=== PATIENT | female | born 1995 | race Caucasian/White ===

== ENCOUNTER 2016-12-04 11:37 | Emergency (ER) | payer SELFPAY ==
[2016-12-04] MEDS ORDERED: NS 0.9% 1000 ML* 1,000 ML IV ONE (12:34)
--- NOTE | 2016-12-04 13:22 | RAD ---
Indication: 1 day RIGHT upper quadrant and midline abdominal pain intermittent. Comparison: July 30, 2015 CT chest. Technique: RIGHT upper quadrant ultrasound. Report: Appropriate direction flow documented in the portal and hepatic veins. 15.6 cm liver is normal in echogenicity. Negative for focal hepatic lesions. Negative for intrahepatic biliary dilatation. 3.3 mm common bile duct. Adequately distended gallbladder with normal 1.6 mm wall is without pathologic finding. Negative for sonographic Weir's sign. The pancreatic tail is partially obscured due to bowel gas with the visualized pancreas unremarkable. Negative for ascites. 12.0 cm RIGHT kidney is unremarkable. Normal diameter abdominal aorta visualized through the bifurcation. IMPRESSION: Negative RIGHT upper quadrant ultrasound.
[2016-12-04] MEDS ORDERED: Morphine INJ* 4 MG/ML 1 ML SYRINGE IV ONE (13:36)
[2016-12-04] MEDS ORDERED: Ondansetron INJ* 2 MG/ML VIAL IV ONE (13:36)
[2016-12-04 13:40] LABS: Hematocrit 46 % (35-47); Hemoglobin 15.3 g/dl (12.0-16.0); Mean Corpuscular HGB Conc 34 g/dl (31-36); Mean Corpuscular Hemoglobin 30 pg (27-31); Mean Corpuscular Volume 91 fL (80-97); Mean Platelet Volume 8 um3 (7.4-10.4); Red Blood Count 5.02 10^6/ul (4.0-5.4); Red Cell Distribution Width 13 % (10.5-15); White Blood Count 9.7 10^3/ul (3.5-10.8)
[2016-12-04 13:49] LABS: Urine Bilirubin Negative (Negative); Urine Glucose Negative (Negative); Urine Nitrite Negative (Negative)
[2016-12-04 13:55] LABS: Albumin 4.3 g/dL (3.2-5.2); BUN/Creatinine Ratio 13.8 (8-20); C Reactive Protein 26.85 mg/L (< 5.00); Calcium 9.8 mg/dL (8.6-10.3); EGFR African American 145.3 (>60); Globulin 3.3 g/dL (2-4); Magnesium 1.8 mg/dL (1.9-2.7); Potassium 3.6 mmol/L (3.5-5.0); Total Bilirubin 0.6 mg/dL (0.2-1.0); Total Protein 7.6 g/dL (6.4-8.9)
[2016-12-04] MEDS ORDERED: Iohexol 300* (CONTRAST) 10 ML SDV IV ONE (14:15)
--- NOTE | 2016-12-04 14:42 | RAD ---
CLINICAL HISTORY: Abdominal pain COMPARISON: None TECHNIQUE: Multiple contiguous axial CT scans were obtained of the abdomen and pelvis after the administration of intravenous contrast. Coronal and sagittal multiplanar reformations are submitted for review. Oral contrast was not administered. Delayed images were obtained through the abdomen and pelvis. FINDINGS: LUNG BASES: The lung bases are clear. LIVER: The liver is diffusely low in attenuation compared to the spleen. There are no focal hepatic parenchymal masses. BILE DUCTS: There is no intrahepatic or extrahepatic biliary dilatation. GALLBLADDER: The gallbladder is normal, without pericholecystic inflammatory change. PANCREAS: The pancreas is normal, without mass or ductal dilatation. SPLEEN: Normal in size and appearance. UPPER GI TRACT: Evaluation of the gastrointestinal tract is limited by incomplete gastric distention. The upper GI tract is unremarkable. SMALL BOWEL AND MESENTERY: The small bowel is normal in contour, course, and caliber. There is no obstruction or dilatation. COLON: The colon is normal in contour, course, caliber. There is no pericolonic inflammatory change. ADRENALS: Normal bilaterally. KIDNEYS: The kidneys are normal in shape, size, contour, and axis. There is no hydronephrosis or nephrolithiasis. BLADDER: The bladder is smooth in contour. PELVIC ORGANS: The uterus and adnexa are grossly normal for technique. An IUD is noted. AORTA: The aorta is normal. IVC: Unremarkable LYMPH NODES: There is no lymphadenopathy by size criteria. ABDOMINAL WALL: There is no evidence for abdominal wall hernia. BONES AND SOFT TISSUES: There is minimal degenerative change most pronounced at L1-L2. There is no appreciable osseous central canal stenosis OTHER: None IMPRESSION: FATTY ATTRITION OF THE LIVER. NO ACUTE CT PATHOLOGY OF THE VISUALIZED ABDOMEN OR PELVIS.
[2016-12-04 16:06] VITALS: BP 130/68
--- NOTE | 2016-12-04 18:55 | ED ---
[employer] Auryana, scribed for Phu Talley MD on 12/04/16 at 1232 . Abdominal Pain/Female - HPI Summary HPI Summary: 21 year old female presents to the ED for sudden onset abdominal pain since 7: 30pm yesterday. The pain is a 7/10, intermittently worse. Patient also has back pain s/p pulling her back 4 days ago. She reports nausea but denies any diarrhea. Her pain has been unchanged by Pepto-Bismol and heating pack. Patient states no recent LNMP due to control use and denies any possibility of . - History of Current Complaint Chief Complaint: EDAbdPain Stated Complaint: BACK PAIN/ABD PAIN / SHAKING Time Seen by Provider: 12/04/16 12:25 Hx Obtained From: Patient Hx Last Menstrual Period: 1 1/2 WEEKS AGO ?: No Onset/Duration: Sudden Onset, Lasting Hours Timing: Constant - varying in severity Severity Initially: Moderate Severity Currently: Moderate Pain Intensity: 7 Pain Scale Used: 0-10 Numeric Radiates to: Back Alleviating Factor(s): Nothing Associated Signs and Symptoms: Positive: Back Pain - s/p pulling back 4 days ago , Nausea. Negative: Diarrhea Allergies/Adverse Reactions: Allergies Allergy/AdvReac Type Severity Reaction Status Date / Time Phentermine Allergy Hives Verified 03/31/16 20:52 PMH/Surg Hx/FS Hx/Imm Hx Endocrine/Hematology History: Reports: Hx Anticoagulant Therapy Denies: Hx Diabetes Cardiovascular History: Reports: Hx Deep Vein Thrombosis Denies: Hx Pacemaker/ICD Respiratory History: Reports: Hx Asthma - INHALER PRN Sensory History: Denies: Hx Hearing Aid Psychiatric History: Denies: Hx Depression, Hx Panic Disorder - Immunization History Date of Tetanus Vaccine: pt states unsure Date of Influenza Vaccine: none Infectious Disease History: No Infectious Disease History: Denies: Traveled Outside the [place] in Last 30 Days - Family History Known Family History: Positive: Hypertension, Diabetes - Social History Alcohol Use: None Hx Substance Use: No Substance Use Type: Reports: None Hx Tobacco Use: Yes Smoking Status (MU): Current Every Day Smoker Type: Cigarettes Have You Smoked in the Last Year: Yes Review of Systems Constitutional: Negative Eyes: Negative ENT: Negative Cardiovascular: Negative Respiratory: Negative Positive: Abdominal Pain, Nausea. Negative: Diarrhea Genitourinary: Negative Positive: Other - back pain Skin: Negative Neurological: Negative Psychological: Normal All Other Systems Reviewed And Are Negative: Yes Physical Exam - Summary Physical Exam Summary: VITAL SIGNS: Reviewed. GENERAL: Patient is a well-developed and obese female who is lying uncomfortable in the stretcher. Patient is not in any acute respiratory distress. HEAD AND FACE: Normocephalic and atraumatic. EYES: PERRLA, EOMI x 2, No injected conjunctiva. EARS: Hearing grossly intact. Ear canals and tympanic membranes are WNL. MOUTH: Oropharynx within normal limits. NECK: Supple, trachea is midline, no adenopathy, no JVD. CHEST: Symmetric, no tenderness at palpation LUNGS: Clear to auscultation bilaterally. No wheezing or crackles. CVS: RRR, S1 and S2 present, no murmurs or gallops appreciated. ABDOMEN: Soft. No signs of distention. Positive bowel sounds. No rebound no guarding, and no masses palpated. No abdominal bruit or pulsations. RUQ tenderness. EXTREMITIES: FROM in all major joints, no edema, no cyanosis or clubbing. NEURO: Alert and oriented x 3. No acute neurological deficits. Speech is normal. SKIN: Dry and warm Triage Information Reviewed: Yes Vital Signs On Initial Exam: Initial Vitals Temp Pulse Resp BP Pulse Ox 97 F 70 17 135/76 100 12/04/16 11:40 12/04/16 11:40 12/04/16 11:40 12/04/16 11:40 12/04/16 11:40 Vital Signs Reviewed: Yes Diagnostics - Vital Signs Vital Signs Temp Pulse Resp BP Pulse Ox 12/04/16 11:48 97 F 70 17 135/76 100 12/04/16 11:40 97 F 70 17 135/76 100 - Laboratory Lab Results: Lab Results 12/04/16 12/04/16 12/04/16 Range/Units 13:29 13:29 13:29 WBC 9.7 (3.5-10.8) 10^3/ul RBC 5.02 (4.0-5.4) 10^6/ul Hgb 15.3 (12.0-16.0) g/dl Hct 46 (35-47) % MCV 91 (80-97) fL MCH 30 (27-31) pg MCHC 34 (31-36) g/dl RDW 13 (10.5-15) % Plt Count 296 (150-450) 10^3/ul MPV 8 (7.4-10.4) um3 Neut % (Auto) 71.6 (38-83) % Lymph % (Auto) 20.5 L (25-47) % [place] % (Auto) 6.1 (1-9) % Eos % (Auto) 0.9 (0-6) % Baso % (Auto) 0.9 (0-2) % Absolute Neuts (auto) 6.9 (1.5-7.7) 10^3/ul Absolute Lymphs (auto) 2.0 (1.0-4.8) 10^3/ul Absolute Monos (auto) 0.6 (0-0.8) 10^3/ul Absolute Eos (auto) 0.1 (0-0.6) 10^3/ul Absolute Basos (auto) 0.1 (0-0.2) 10^3/ul Absolute Nucleated RBC 0.01 10^3/ul Nucleated RBC % 0.1 Sodium 136 (133-145) mmol/L Potassium 3.6 (3.5-5.0) mmol/L Chloride 103 (101-111) mmol/L Carbon Dioxide 27 (22-32) mmol/L Anion Gap 6 (2-11) mmol/L BUN 9 (6-24) mg/dL Creatinine 0.65 (0.51-0.95) mg/dL Est GFR ( Amer) 145.3 (>60) Est GFR (Non-Af Amer) 113.0 (>60) BUN/Creatinine Ratio 13.8 (8-20) Glucose 86 (70-100) mg/dL Lactic Acid (0.5-2.0) mmol/L Calcium 9.8 (8.6-10.3) mg/dL Magnesium 1.8 L (1.9-2.7) mg/dL Total Bilirubin 0.60 (0.2-1.0) mg/dL AST 13 (13-39) U/L ALT 16 (7-52) U/L Alkaline Phosphatase 95 (34-104) U/L Ammonia (16-53) mol/L C-Reactive Protein 26.85 H (< 5.00) mg/L Total Protein 7.6 (6.4-8.9) g/dL Albumin 4.3 (3.2-5.2) g/dL Globulin 3.3 (2-4) g/dL Albumin/Globulin Ratio 1.3 (1-3) Lipase 11 (11.0-82.0) U/L Urine Color Straw Urine Appearance Clear Urine pH 7.0 (5-9) Ur Specific [place] 1.005 L (1.010-1.030) Urine Protein Negative (Negative) Urine Ketones Negative (Negative) Urine Blood Negative (Negative) Urine Nitrate Negative (Negative) Urine Bilirubin Negative (Negative) Urine Urobilinogen Negative (Negative) Ur Leukocyte Esterase 2+ H (Negative) Urine WBC (Auto) 2+(11-20/hpf) H (Absent) Ur Squamous Epith Cells Present H (Absent) Urine Glucose Negative (Negative) 12/04/16 12/04/16 Range/Units 13:29 13:29 WBC (3.5-10.8) 10^3/ul RBC (4.0-5.4) 10^6/ul Hgb (12.0-16.0) g/dl Hct (35-47) % MCV (80-97) fL MCH (27-31) pg MCHC (31-36) g/dl RDW (10.5-15) % Plt Count (150-450) 10^3/ul MPV (7.4-10.4) um3 Neut % (Auto) (38-83) % Lymph % (Auto) (25-47) % [place] % (Auto) (1-9) % Eos % (Auto) (0-6) % Baso % (Auto) (0-2) % Absolute Neuts (auto) (1.5-7.7) 10^3/ul Absolute Lymphs (auto) (1.0-4.8) 10^3/ul Absolute Monos (auto) (0-0.8) 10^3/ul Absolute Eos (auto) (0-0.6) 10^3/ul Absolute Basos (auto) (0-0.2) 10^3/ul Absolute Nucleated RBC 10^3/ul Nucleated RBC % Sodium (133-145) mmol/L Potassium (3.5-5.0) mmol/L Chloride (101-111) mmol/L Carbon Dioxide (22-32) mmol/L Anion Gap (2-11) mmol/L BUN (6-24) mg/dL Creatinine (0.51-0.95) mg/dL Est GFR ( Amer) (>60) Est GFR (Non-Af Amer) (>60) BUN/Creatinine Ratio (8-20) Glucose (70-100) mg/dL Lactic Acid 0.4 L (0.5-2.0) mmol/L Calcium (8.6-10.3) mg/dL Magnesium (1.9-2.7) mg/dL Total Bilirubin (0.2-1.0) mg/dL AST (13-39) U/L ALT (7-52) U/L Alkaline Phosphatase (34-104) U/L Ammonia 26 (16-53) mol/L C-Reactive Protein (< 5.00) mg/L Total Protein (6.4-8.9) g/dL Albumin (3.2-5.2) g/dL Globulin (2-4) g/dL Albumin/Globulin Ratio (1-3) Lipase (11.0-82.0) U/L Urine Color Urine Appearance Urine pH (5-9) Ur Specific [place] (1.010-1.030) Urine Protein (Negative) Urine Ketones (Negative) Urine Blood (Negative) Urine Nitrate (Negative) Urine Bilirubin (Negative) Urine Urobilinogen (Negative) Ur Leukocyte Esterase (Negative) Urine WBC (Auto) (Absent) Ur Squamous Epith Cells (Absent) Urine Glucose (Negative) Result Diagrams: 12/04/16 13:29 12/04/16 13:29 Lab Statement: Any lab studies that have been ordered have been reviewed, and results considered in the medical decision making process. - Additional Comments Diagnostic Additional Comments: US Gall Bladder IMPRESSION: Negative RIGHT upper quadrant ultrasound. Abdominal Pain Fem Course/Dx - Course Course Of Treatment: 21 year old female presents to the ED for sudden onset abdominal pain since 7:30pm yesterday. The pain is a 7/10, intermittently worse. Patient also has back pain s/p pulling her back 4 days ago. She reports nausea but denies any diarrhea. Her pain has been unchanged by Pepto-Bismol and heating pack. Patient states no recent LNMP due to control use and denies any possibility of . Test result WNL except CRP 26.8. UA is contaminated. Therefore we will send urine cultures. US Gall Bladder - IMPRESSION: Negative RIGHT upper quadrant ultrasound. Therefore decided to do ABD CT. CT ABD NEGATIVE. In ED course, given Zofran and morphine for pain and symptoms subsided. She is pain free now, and multiple physical exams show no abdominal tenderness and therefore, I will discharge home with PCP follow up. She was instructed to return if she develops ad nausea, vomiting, fevers, chills , or any other symptoms. - Diagnoses Differential Diagnosis: Positive: Appendicitis, Constipation, Gall Bladder Disease, Irritable Bowel Syndrome Provider Diagnoses: Abdominal pain Discharge - Discharge Plan Condition: Stable Disposition: HOME Prescriptions: Naproxen TAB* [Naprosyn 250 mg TAB*] 500 mg PO Q8H PRN #20 tab PRN Reason: Pain Patient Education Materials: Abdominal Pain (ED) Referrals: Guillermina Crenshaw MD [Primary Care Provider] - 2 Days The documentation as recorded by the [employer] accurately reflects the service I personally performed and the decisions made by , Phu Talley MD.
== END 2016-12-04 16:07 | disposition home or self-care (01) ==
LOC: ED 11:37
DX: R10.9 Unspecified abdominal pain (principal); M54.9 Dorsalgia, unspecified; F17.210 Nicotine dependence, cigarettes, uncomplicated
CPT/HCPCS: 36415; 74177; 76705; 80053; 81003; 81015; 82140; 83605; 83690; 83735; 85025; 86140; 87086; 96374; 96375; 99283; J2270; J2405; Q9967

== ENCOUNTER → 2016-12-22 21:14 | Emergency (ER) | payer SELFPAY ==
[~2016-12-22 21:14] MED LIST: Ketorolac INJ* 60 MG/2 ML VIAL IM ONE
[2016-12-22 22:39] LABS: Hematocrit 42 % (35-47); Hemoglobin 14.3 g/dl (12.0-16.0); Mean Corpuscular HGB Conc 35 g/dl (31-36); Mean Corpuscular Hemoglobin 31 pg (27-31); Mean Corpuscular Volume 90 fL (80-97); Mean Platelet Volume 8 um3 (7.4-10.4); Red Blood Count 4.64 10^6/ul (4.0-5.4); Red Cell Distribution Width 13 % (10.5-15)
[2016-12-22 22:57] LABS: ALT 17 U/L (7-52); AST 15 U/L (13-39); Albumin 3.9 g/dL (3.2-5.2); Alkaline Phosphatase 80 U/L (34-104); Anion Gap 6 mmol/L (2-11); BUN/Creatinine Ratio 21.5 (8-20); Blood Urea Nitrogen 14 mg/dL (6-24); CO2 Carbon Dioxide 25 mmol/L (22-32); Calcium 9.1 mg/dL (8.6-10.3); Chloride 102 mmol/L (101-111); EGFR African American 145.3 (>60); Globulin 2.9 g/dL (2-4); Glucose 100 mg/dL (70-100); Lipase < 10 U/L (11.0-82.0); Potassium 3.5 mmol/L (3.5-5.0); Sodium 133 mmol/L (133-145); Total Protein 6.8 g/dL (6.4-8.9)
[2016-12-22 23:05] LABS: Urine Bacteria Absent (Absent); Urine Bilirubin Negative (Negative); Urine Glucose Negative (Negative); Urine Nitrite Negative (Negative)
[2016-12-22 23:46] VITALS: BP 120/71
--- NOTE | 2016-12-23 00:16 | ED ---
Fredy Rogers Alfonso, scribed for Richard Jerome on 12/22/16 at 2344 . Abdominal Pain/Female - HPI Summary HPI Summary: This patient is a 21 year old F presenting to [facility] accompanied by male with a chief complaint of diffuse abdominal pain since 1430 today. The CC is described as sharp. Pt rates the pain 8/10 in severity. Symptoms aggravated by nothing and alleviated by hydrocodone. Pt reports nausea and vaginal discharge. Pt denies vomiting. She reports recent diagnosis of trichomonas and pelvic inflammatory disease. Tobacco abuse disorder. - History of Current Complaint Chief Complaint: EDAbdPain Stated Complaint: ABD PAIN Time Seen by Provider: 12/22/16 21:57 Hx Obtained From: Patient Onset/Duration: Sudden Onset, Lasting Hours - 1430 today, Still Present Timing: Constant Severity Initially: Moderate Severity Currently: Moderate Pain Intensity: 8 Pain Scale Used: 0-10 Numeric Location: Diffuse Character: Sharp Aggravating Factor(s): Nothing Alleviating Factor(s): Medications - hydrocodone Associated Signs and Symptoms: Positive: Other: - Pt reports nausea and vaginal discharge. Pt denies vomiting. Allergies/Adverse Reactions: Allergies Allergy/AdvReac Type Severity Reaction Status Date / Time Phentermine Allergy Hives Verified 03/31/16 20:52 PMH/Surg Hx/FS Hx/Imm Hx Endocrine/Hematology History: Reports: Hx Anticoagulant Therapy Denies: Hx Diabetes Cardiovascular History: Reports: Hx Deep Vein Thrombosis Denies: Hx Pacemaker/ICD Respiratory History: Reports: Hx Asthma - INHALER PRN Sensory History: Denies: Hx Hearing Aid Psychiatric History: Denies: Hx Depression, Hx Panic Disorder - Immunization History Date of Tetanus Vaccine: pt states unsure Date of Influenza Vaccine: none Infectious Disease History: No Infectious Disease History: Denies: Traveled Outside the [place] in Last 30 Days - Family History Known Family History: Positive: Hypertension, Diabetes - Social History Alcohol Use: None Hx Substance Use: No Substance Use Type: Reports: None Hx Tobacco Use: Yes Smoking Status (MU): Current Every Day Smoker Type: Cigarettes Have You Smoked in the Last Year: Yes Review of Systems Positive: Abdominal Pain, Nausea. Negative: Vomiting Positive: other - Positive vaginal discharge. All Other Systems Reviewed And Are Negative: Yes Physical Exam Triage Information Reviewed: Yes Vital Signs On Initial Exam: Initial Vitals Temp Pulse Resp Pulse Ox 97.2 F 82 16 99 12/22/16 21:17 12/22/16 21:17 12/22/16 21:17 12/22/16 21:17 Vital Signs Reviewed: Yes Appearance: Positive: Well-Appearing, No Pain Distress Skin: Positive: Warm, Skin Color Reflects Adequate Perfusion, Dry Head/Face: Positive: Normal Head/Face Inspection Eyes: Positive: EOMI, SAVANNA ENT: Positive: Normal ENT inspection Neck: Positive: Supple, Nontender Respiratory/Lung Sounds: Positive: Clear to Auscultation, Breath Sounds Present Cardiovascular: Positive: RRR, Pulses are Symmetrical in both Upper and Lower Extremities Abdomen Description: Positive: Soft, Other: - Mild LLQ tenderness. Bowel Sounds: Positive: Present Musculoskeletal: Positive: Normal, Strength/ROM Intact Neurological: Positive: Normal, Sensory/Motor Intact, Alert, Oriented to Person Place, Time Diagnostics - Vital Signs Vital Signs Temp Pulse Resp BP Pulse Ox 12/22/16 21:19 97.4 F 79 16 136/79 100 12/22/16 21:17 97.2 F 82 16 99 - Laboratory Lab Results: Lab Results 12/22/16 12/22/16 12/22/16 Range/Units 21:46 22:32 22:32 WBC 10.0 (3.5-10.8) 10^3/ul RBC 4.64 (4.0-5.4) 10^6/ul Hgb 14.3 (12.0-16.0) g/dl Hct 42 (35-47) % MCV 90 (80-97) fL MCH 31 (27-31) pg MCHC 35 (31-36) g/dl RDW 13 (10.5-15) % Plt Count 295 (150-450) 10^3/ul MPV 8 (7.4-10.4) um3 Neut % (Auto) 62.7 (38-83) % Lymph % (Auto) 29.5 (25-47) % [place] % (Auto) 6.1 (1-9) % Eos % (Auto) 0.7 (0-6) % Baso % (Auto) 1.0 (0-2) % Absolute Neuts (auto) 6.2 (1.5-7.7) 10^3/ul Absolute Lymphs (auto) 2.9 (1.0-4.8) 10^3/ul Absolute Monos (auto) 0.6 (0-0.8) 10^3/ul Absolute Eos (auto) 0.1 (0-0.6) 10^3/ul Absolute Basos (auto) 0.1 (0-0.2) 10^3/ul Absolute Nucleated RBC 0.01 10^3/ul Nucleated RBC % 0.1 Sodium 133 (133-145) mmol/L Potassium 3.5 (3.5-5.0) mmol/L Chloride 102 (101-111) mmol/L Carbon Dioxide 25 (22-32) mmol/L Anion Gap 6 (2-11) mmol/L BUN 14 (6-24) mg/dL Creatinine 0.65 (0.51-0.95) mg/dL Est GFR ( Amer) 145.3 (>60) Est GFR (Non-Af Amer) 113.0 (>60) BUN/Creatinine Ratio 21.5 H (8-20) Glucose 100 (70-100) mg/dL Calcium 9.1 (8.6-10.3) mg/dL Total Bilirubin 0.50 (0.2-1.0) mg/dL AST 15 (13-39) U/L ALT 17 (7-52) U/L Alkaline Phosphatase 80 (34-104) U/L Total Protein 6.8 (6.4-8.9) g/dL Albumin 3.9 (3.2-5.2) g/dL Globulin 2.9 (2-4) g/dL Albumin/Globulin Ratio 1.3 (1-3) Lipase < 10 L (11.0-82.0) U/L Beta HCG, Quant < 0.60 mIU/mL Urine Color Yellow Urine Appearance Clear Urine pH 5.0 (5-9) Ur Specific [place] 1.032 H (1.010-1.030) Urine Protein Negative (Negative) Urine Ketones Negative (Negative) Urine Blood 1+ H (Negative) Urine Nitrate Negative (Negative) Urine Bilirubin Negative (Negative) Urine Urobilinogen Negative (Negative) Ur Leukocyte Esterase Negative (Negative) Urine WBC (Auto) Trace(0-5/hpf) (Absent) Urine RBC (Auto) 2+(6-10/hpf) H (Absent) Ur Squamous Epith Cells Present H (Absent) Urine Bacteria Absent (Absent) Urine Glucose Negative (Negative) Result Diagrams: 12/22/16 22:32 12/22/16 22:32 Lab Statement: Any lab studies that have been ordered have been reviewed, and results considered in the medical decision making process. - CT A/P CT Interpretation Completed By: Radiologist - Negative exam. Abdominal Pain Fem Course/Dx - Course Course Of Treatment: 21 year old F presenting to [facility] accompanied by male with a chief complaint of diffuse abdominal pain since 1430 today. Pt reports nausea and vaginal discharge. Pt denies vomiting. She reports recent diagnosis of trichomonas and pelvic inflammatory disease. CT A/P reveals negative exam. Patient will be discharged with follow up from PCP. Pt is agreeable with this plan. - Diagnoses Provider Diagnoses: Nonspecific abdominal pain Discharge - Discharge Plan Condition: Stable Disposition: HOME Prescriptions: Diclofenac Sodium EC TAB* [Voltaren EC TAB*] 50 mg PO TID PRN #20 tab.ec PRN Reason: Pain Patient Education Materials: Acute Abdominal Pain (ED) Referrals: Guillermina Crenshaw MD [Primary Care Provider] - 3 Days The documentation as recorded by the Fredy lopez Alfonso accurately reflects the service I personally performed and the decisions made by Queenie ward Emmanuel.
--- NOTE | 2016-12-23 12:44 | RAD ---
CLINICAL HISTORY: Pelvic pain COMPARISON: Most recent CT examination is dated December 04, 2016 TECHNIQUE: Noncontrast CT examination of the abdomen and pelvis from the lung bases through the initial tuberosities. FINDINGS: VISUALIZED LUNG BASES: The visualized lung bases are grossly clear. There is no pleural effusion. ABDOMEN AND PELVIS: Evaluation of the solid organs and vasculature is limited without intravenous contrast. The spleen measures 13.7 cm in greatest axial dimension. The liver, pancreas and adrenal glands are grossly normal in appearance. The gallbladder is normal. The kidneys are normal in appearance without focal mass, calcification or signs of hydronephrosis. The small and large bowel are not distended.The patient's normal appendix is identified in the right lower quadrant measuring just under 6 mm in diameter (image 134). There is no gross retroperitoneal or mesenteric lymphadenopathy. An intrauterine device is in position. The abdominal aorta and iliac arteries are normal in course and diameter. There are no sinister bone lesions. IMPRESSION: 1. No CT apparent acute abnormality of the abdomen or pelvis within the limitations of a noncontrast CT examination. 2. Mild splenomegaly measuring up to 13.7 cm and greatest axial dimension unchanged from the previous CT examination.
== END | disposition home or self-care (01) ==
LOC: ED 21:14
DX: R10.9 Unspecified abdominal pain (principal); J45.909 Unspecified asthma, uncomplicated; Z79.01 Long term (current) use of anticoagulants; Z86.718 Personal history of other venous thrombosis and embolism; F17.210 Nicotine dependence, cigarettes, uncomplicated
CPT/HCPCS: 36415; 74176; 80053; 81003; 81015; 83690; 84702; 85025; 96372; 99283; J1885

== ENCOUNTER 2017-07-29 17:12 | Emergency (ER) | payer BC ==
--- NOTE | 2017-07-29 18:35 | RAD ---
Indication: Back pain. 5 views of lumbar spine demonstrate vertebral bodies to be normal in height. Disc spaces all well-preserved. Disc space narrowing at L4-L5 is noted. No fracture is noted. IMPRESSION: Degenerative disc disease at L4-L5 without fracture.
[2017-07-29] MEDS ORDERED: Ketorolac INJ* 60 MG/2 ML VIAL IM ONE (19:13)
[2017-07-29] MEDS ORDERED: HYDROcodone/ACETAMIN 5-325 MG* 1 TAB PO ONE (19:13)
--- NOTE | 2017-07-29 19:18 | ED ---
Back Pain - HPI Summary HPI Summary: 22-year-old female presents with lower back pain for the past week. She states it started after she was seen pain clinic and they pushed on her back. States she went home and then she felt a pop in the lower back when she tripped. She has been taking her normal pain medication without relief. She states her chronic numbness and tingling remains unchanged. She denies any loss of bowel or bladder or saddle anaesthesia. She denies any fevers or IV drug use. She states her pain is greatest on the left side of her back which is where her pain sometimes is. She states what is changed greatest of them intensity of the pain. She is still able to ambulate. She denies any pain with urination or abdominal pain. - History of Current Complaint Chief Complaint: EDBackInjuryPain Stated Complaint: BACK PAIN Time Seen by Provider: 07/29/17 18:34 Hx Last Menstrual Period: 1 1/2 WEEKS AGO Pain Intensity: 9 - Allergies/Home Medications Allergies/Adverse Reactions: Allergies Allergy/AdvReac Type Severity Reaction Status Date / Time MS Phentermine [Phentermine] Allergy Hives Verified 07/29/17 17:14 PMH/Surg Hx/FS Hx/Imm Hx Endocrine/Hematology History: Reports: Hx Anticoagulant Therapy Denies: Hx Diabetes Cardiovascular History: Reports: Hx Deep Vein Thrombosis Denies: Hx Pacemaker/ICD Respiratory History: Reports: Hx Asthma - INHALER PRN Sensory History: Denies: Hx Hearing Aid Neurological History: Reports: Other Neuro Impairments/Disorders - SPINAL STENOSIS, 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 Psychiatric History: Denies: Hx Depression, Hx Panic Disorder - Immunization History Date of Tetanus Vaccine: pt states unsure Date of Influenza Vaccine: none Infectious Disease History: No Infectious Disease History: Denies: Traveled Outside the [place] in Last 30 Days - Family History Known Family History: Positive: None, Hypertension, Diabetes - Social History Alcohol Use: None Hx Substance Use: No Substance Use Type: Reports: None Hx Tobacco Use: Yes Smoking Status (MU): Current Every Day Smoker Type: Cigarettes Have You Smoked in the Last Year: Yes Review of Systems Negative: Fever Negative: Chest Pain Negative: Shortness Of Breath Positive: Myalgia - back pain All Other Systems Reviewed And Are Negative: Yes Physical Exam Triage Information Reviewed: Yes Vital Signs On Initial Exam: Initial Vitals Temp Pulse Resp BP Pulse Ox 97.0 F 75 20 155/94 97 07/29/17 17:14 07/29/17 17:14 07/29/17 17:14 07/29/17 17:14 07/29/17 17:14 Vital Signs Reviewed: Yes Appearance: Positive: Well-Appearing Skin: Positive: Warm, Dry Head/Face: Positive: Normal Head/Face Inspection Eyes: Positive: Normal, Conjunctiva Clear Respiratory/Lung Sounds: Positive: Clear to Auscultation, Breath Sounds Present Cardiovascular: Positive: Normal, RRR Abdomen Description: Positive: Nontender, Soft Bowel Sounds: Positive: Present Musculoskeletal: Positive: Strength/ROM Intact - back with pain, Other - pos SLR , tenderness to lower back especially left side Neurological: Positive: Sensory/Motor Intact - lower legs, Other - sensation grossly intact. Negative: Babinski Bilateral - neg Psychiatric: Positive: Normal Diagnostics - Vital Signs Vital Signs Temp Pulse Resp BP Pulse Ox 07/29/17 17:14 97.0 F 75 20 155/94 97 - Laboratory Lab Statement: Any lab studies that have been ordered have been reviewed, and results considered in the medical decision making process. - Radiology back Xray Interpretation: Positive (See Comments) - IMPRESSION: Degenerative disc disease at L4-L5 without fracture. Radiology Interpretation Completed By: Radiologist Back Pain Course/Dx - Course Course Of Treatment: 22-year-old female presents with lower back pain for the past week. She states it started after she was seen pain clinic and they pushed on her back. States she went home and then she felt a pop in the lower back when she tripped. She has been taking her normal pain medication without relief. She states her chronic numbness and tingling remains unchanged. She denies any loss of bowel or bladder or saddle anaesthesia. She denies any fevers or IV drug use. She states her pain is greatest on the left side of her back which is where her pain sometimes is. She states what is changed greatest of them intensity of the pain. She is still able to ambulate. On exam tenderness lower back. Has full range of motion with pain. Positive straight leg raise. Sensation and reflexes intact. X-ray shows no fracture. Will treat with lidocaine patches and have follow-up with the pain clinic. Patient understands and agrees plan. - Diagnoses Differential Diagnosis/HQI/PQRI: Positive: Fracture, Herniated Disc, Strain, Sprain Provider Diagnoses: Back pain Discharge - Discharge Plan Condition: Good Disposition: HOME Prescriptions: Lidocaine PATCH 5%* [Lidoderm 5% Patch*] 1 patch TRANSDERM DAILY #6 patch methylPREDNISolone [Medrol Dosepak 4 MG*] 4 mg PO .SEE JUAN INSTRUCTION #1 packet Patient Education Materials: Back Pain (ED) Referrals: Guillermina Crenshaw MD [Primary Care Provider] - Additional Instructions: Follow directions on package for Medrol pack Apply lidocaine patches to area for up to 12 hours in one 24 hour period Use ibuprofen or Tylenol for pain every 6 hours ice/heat area, move as much as possible Follow up with primary within 5 days Return to ED if develop any new or worsening symptoms
[2017-07-29 19:53] VITALS: BP 150/88
[2017-07-29] MEDS ORDERED: Lidocaine PATCH 5%* 1 PATCH TRANSDERM ONE (20:00)
== END 2017-07-29 19:54 | disposition home or self-care (01) ==
LOC: ED 17:12
DX: F17.210 Nicotine dependence, cigarettes, uncomplicated (principal); M54.5 Low back pain; Z79.01 Long term (current) use of anticoagulants
CPT/HCPCS: 72110; 96372; 99282; A9270-GY; J1885

== ENCOUNTER 2018-05-13 20:01 | Emergency (ER) | payer MEDICAID, OTHER ==
[2018-05-13] MEDS ORDERED: predniSONE TAB* 20 MG PO ONE (20:45)
[2018-05-13] MEDS ORDERED: Ketorolac INJ* 60 MG/2 ML VIAL IM ONE (20:45)
--- NOTE | 2018-05-13 20:45 | ED ---
Back Pain - HPI Summary HPI Summary: The pt is a 23 y/o female with a hx of degenerative disc disease presenting to [facility] c/o [id number] back pain. She denies abd pain and injuries. She has an appointment on 05/22/2018 for the pain management. PMhx: Stenosis. Home Medications Medication Instructions Recorded Confirmed Type Levonorgestrel (IUD) (NF) [Mirena 03/31/16 History (NF)] Naproxen TAB* [Naprosyn 250 mg 500 mg PO Q8H PRN #20 tab 12/04/16 Rx TAB*] Diclofenac Sodium EC TAB* 50 mg PO TID PRN #20 tab.ec 12/22/16 Rx [Voltaren EC TAB*] Lidocaine PATCH 5%* [Lidoderm 5% 1 patch TRANSDERM DAILY #6 patch 07/29/17 Rx Patch*] methylPREDNISolone [Medrol Dosepak 4 mg PO .SEE JUAN INSTRUCTION #1 07/29/17 Rx 4 MG*] packet methylPREDNISolone [Medrol Dosepak 1 mg PO .SEE JUAN INSTRUCTION #1 tab 05/13/18 Rx 4 MG*] - History of Current Complaint Chief Complaint: EDBackInjuryPain Stated Complaint: BACK PAIN Time Seen by Provider: 05/13/18 20:38 Hx Obtained From: Patient Hx Last Menstrual Period: 1 1/2 WEEKS AGO Onset/Duration: Still Present, Other - [id number] Timing: Constant Severity Initially: Severe Severity Currently: Severe Pain Intensity: 8 Pain Scale Used: 0-10 Numeric Character: Sharp Aggravating Symptom(s): Nothing Alleviating Symptom(s): Position Associated Signs And Symptoms: Positive: Negative - Injuries. Negative: Abdominal Pain - Allergies/Home Medications Allergies/Adverse Reactions: Allergies Allergy/AdvReac Type Severity Reaction Status Date / Time MS Phentermine [Phentermine] Allergy Hives Verified 09/09/17 11:08 PMH/Surg Hx/FS Hx/Imm Hx Previously Healthy: No Endocrine/Hematology History: Reports: Hx Anticoagulant Therapy Denies: Hx Diabetes Cardiovascular History: Reports: Hx Deep Vein Thrombosis Denies: Hx Hypertension, Hx Pacemaker/ICD Respiratory History: Reports: Hx Asthma - INHALER PRN Musculoskeletal History: Reports: Other Musculoskeletal History - Degenerative disc disease, Chronic back pain Sensory History: Denies: Hx Hearing Aid Neurological History: Reports: Other Neuro Impairments/Disorders - Spinal stenosis and chipped and bulging discs in the L-spine. Psychiatric History: Denies: Hx Depression, Hx Panic Disorder - Cancer History Cancer Type, Location and Year: None reported - Surgical History Surgery Procedure, Year, and Place: WISDOM TEETH - Immunization History Date of Tetanus Vaccine: pt states unsure Date of Influenza Vaccine: none Infectious Disease History: No Infectious Disease History: Denies: Traveled Outside the [place] in Last 30 Days - Family History Known Family History: Positive: Hypertension, Diabetes - Social History Occupation: Employed Full-time Lives: With Family Alcohol Use: None Hx Substance Use: No Substance Use Type: Reports: None Hx Tobacco Use: Yes Smoking Status (MU): Current Every Day Smoker Type: Cigarettes Have You Smoked in the Last Year: Yes Review of Systems Negative: Abdominal Pain Positive: no symptoms reported Musculoskeletal: Other - Chronic back pain All Other Systems Reviewed And Are Negative: Yes Physical Exam - Summary Physical Exam Summary: Appearance: Well appearing, no pain distress Skin: warm, dry, reflects adequate perfusion Head/face: normal Eyes: EOMI, SAVANNA ENT: normal Neck: supple, non-tender Respiratory: CTA, breath sounds present Cardiovascular: RRR, pulses symmetrical Abdomen: non-tender, soft Musculoskeletal: normal, muscle spasm over the lumbar spine Neuro: normal, sensory motor intact, A&Ox3 Triage Information Reviewed: Yes Vital Signs On Initial Exam: Initial Vitals Temp Pulse Resp BP Pulse Ox 97.7 F 103 20 165/94 100 05/13/18 20:19 05/13/18 20:19 05/13/18 20:19 05/13/18 20:19 05/13/18 20:19 Vital Signs Reviewed: Yes Diagnostics - Vital Signs Vital Signs Temp Pulse Resp BP Pulse Ox 05/13/18 20:19 97.7 F 103 20 165/94 100 - Laboratory Lab Statement: Any lab studies that have been ordered have been reviewed, and results considered in the medical decision making process. Back Pain Course/Dx - Course Course Of Treatment: A 23 year-old F presents to the ED with a CC of acute-on- chronic back pain. She denies abd pain and injuries. A physical exam is unremarkable. In the ED course, pt was given Ketorolac 60 mg IM and Prednisone 60 mg PO which improved the symptoms. Patient will be discharged with a final Dx of chronmic back pain. Pt is agreeable with this plan. Allergies noted. - Diagnoses Differential Diagnosis/HQI/PQRI: Positive: Arthritis, Strain Provider Diagnoses: Chronic back pain Discharge - Sign-Out/Discharge Documenting (check all that apply): Patient Departure - DC - Discharge Plan Condition: Stable Disposition: HOME Prescriptions: methylPREDNISolone [Medrol Dosepak 4 MG*] 1 mg PO .SEE JUAN INSTRUCTION #1 tab Patient Education Materials: Chronic Back Pain (DC) Referrals: [facility] [Outside] Additional Instructions: Follow up with PCP in 2 days Return to ED for any new or worsening symptoms - Billing Disposition and Condition Condition: STABLE Disposition: Home - Attestation Statements Document Initiated by Scribe: Yes Documenting Scribe: Meg Montoya Provider For Whom Kaleigh is Documenting (Include Credential): Dr. Richard Jerome MD Scribe Attestation: Meg Rogers, scribed for Dr. Richard Jerome MD on 05/13/18 at 2111. Scribe Documentation Reviewed: Yes Provider Attestation: The documentation as recorded by the Meg lopez accurately reflects the service I personally performed and the decisions made by , Dr. Richard Jerome MD Status of Scribe Document: Viewed
[2018-05-13 21:12] VITALS: BP 0/0
== END 2018-05-13 21:11 | disposition home or self-care (01) ==
LOC: ED 20:01
DX: M54.9 Dorsalgia, unspecified (principal); G89.29 Other chronic pain; F17.210 Nicotine dependence, cigarettes, uncomplicated
CPT/HCPCS: 96372; 99282; J1885; J7512

== ENCOUNTER 2018-08-18 02:17 | Emergency (ER) | payer OTHER ==
--- OUTSIDE RECORDS SUMMARY | 2018-08-18 02:28 | XMS REPORT | Continuity of Care Document ---
:1995 External Reference #:[id number] Author Name Scotty Mcdermott DO, MPH Address [address] [place] [address], [address] [place] [address] Care Team Providers Name Role Phone Guillermina Crenshaw M.D. Care Team Information Business Office Representative Unavailable Fannie Beth M.D. Primary Care Physician Unavailable Payers Date Identification Numbers Payment Provider Subscriber Effective: 2017 Policy Number: [id number] [facility] Shilpa Domínguez PayID: [id number] [employer] [address] [place] [address] Expires: 2017 Policy Number: [id number] Medicaid ID Shilpa Domínguez PayID: [id number] [address] [place] [address] Expires: 2017 Policy Number: [id number] [employer] [facility] Shilpa Domínguez PayID: [id number] [address] [address] [place] [address] Advance Directives Description No Information Available Problems Description No Information Family History Date Family Member(s) Observation Comments Father due to Drug Overdose () Mother 45 Children 1 Siblings 4 Social History Type Date Description Comments Sex Unknown Marital Status Lives With Spouse Occupation [employer] Work Status Currently Working ETOH Use Rarely consumes alcohol Tobacco Use Start: Unknown Patient is a current smoker, smokes every day Recreational Drug Use Denies Drug Use Smoking Status Reviewed: 07/22/18 Patient is a current smoker, smokes every day Allergies, Adverse Reactions, Alerts Date Description Reaction Status Severity Comments 04/02/2017 Phentermine Urticaria Active Medications Medication Date Status Form Strength Qnty SIG Indications Ordering Provider Alpha-Lipoic 06/20/ Active Capsules 200mg 90caps take one Baldemar Acid 2019 capsule by Scotty, mouth DO, MPH every 8 hours as directed chronic pain. Hydrocodone-Carlos 10/25/ Active Tablets 10-325mg 60tabs si by senia Mcdermott 2018 mouth Scotty, every 6 DO, MPH hours as directed chronic pain patient, dosage increase Tizanidine HCL 04/02/ Active Tablets 2mg 45tabs si.5 by Baldemar 2016 mouth at Scotty, night DO, MPH Ibuprofen / Active Tablets 800mg take 1 by Unknown 0000 mouth twice daily Mirena (52 MG) / Active IUD 20mcg/24HR Unknown 0000 Amitriptyline / Active Tablets 25mg si by Unknown HCL 0000 mouth every night Hydrocodone-Carlos 10/08/ Hx Tablets 5-325mg 100tab take 1 senia Mcdermott 2018 - s tablet by Scotty, 10/25/ mouth DO, MPH 2018 every 4 to 6 hours as directed chronic pain. Hydrocodone-Carlos 06/26/ Hx Tablets 10-325mg 90tabs si by senia Mcdermott 2018 - mouth Scotty, 10/08/ every 8 DO, MPH 2018 hours as directed chronic pain patient Dilaudid 06/21/ Hx Tablets 2mg 90tabs si Baldemar 2018 - every 8 Scotty, 06/26/ hours as DO, MPH 2018 directed chronic pain patient Promethazine 04/04/ Hx Tablets 12.5mg 30tabs 1 by mouth Baldemar, HCL 2016 - q12 Scotty, 09/12/ DO, MPH 2017 Oxycodone HCL 04/02/ Hx Tablets 5mg 90tabs si by Baldemar 2016 - mouth Scotty, 06/26/ every 6 to DO, MPH 2018 8 hours as directed chronic pain patient Hydrocodone-Carlos / Hx Tablets 5-325mg take 1.5 Unknown taminophen 0000 - tablet by mouth 2016 every night Bupropion HCL / Hx Tablets ER 150mg 1 by mouth Unknown ER (SR) 0000 - 12HR daily 2017 Immunizations Description No Information Available Vital Signs Date Vital Result Comment 07/22/2018 3:04pm BP Systolic 128 mmHg BP Diastolic 86 mmHg Heart Rate 84 /min Respiratory Rate 20 /min Height 63 inches 5'3" Weight 248.00 lb Pain Level 5 Pain at this time. Pain Level With Medicine 5 on average with meds Pain Level Without Medicine 03/05 without meds BMI (Body Mass Index) 43.9 kg/m2 06/20/2018 10:56am BP Systolic 142 mmHg BP Diastolic 86 mmHg Heart Rate 84 /min Respiratory Rate 20 /min Height 63 inches 5'3" Weight 276.00 lb Pain Level 7 Pain at this time. Pain Level With Medicine 6 on average with meds Pain Level Without Medicine 03/05 without meds BMI (Body Mass Index) 48.9 kg/m2 05/22/2018 3:18pm BP Systolic 130 mmHg BP Diastolic 82 mmHg Heart Rate 80 /min Respiratory Rate 20 /min Height 63 inches 5'3" Weight 276.00 lb Pain Level 8 Pain at this time. Pain Level With Medicine 7 on average with meds Pain Level Without Medicine 03/05 without meds BMI (Body Mass Index) 48.9 kg/m2 04/24/2018 2:49pm BP Systolic 122 mmHg BP Diastolic 74 mmHg Heart Rate 76 /min Respiratory Rate 20 /min Height 63 inches 5'3" Weight 274.00 lb Pain Level 8 Pain at this time. Pain Level With Medicine 7 on average with meds Pain Level Without Medicine 03/05 without meds BMI (Body Mass Index) 48.5 kg/m2 03/25/2018 3:27pm BP Systolic 122 mmHg BP Diastolic 74 mmHg Heart Rate 76 /min Respiratory Rate 20 /min Height 63 inches 5'3" Weight 246.00 lb Pain Level 8 Pain at this time. Pain Level With Medicine 6 on average with meds Pain Level Without Medicine 03/05 without meds BMI (Body Mass Index) 43.6 kg/m2 03/13/2018 3:11pm BP Systolic 128 mmHg BP Diastolic 76 mmHg Heart Rate 74 /min Respiratory Rate 20 /min Height 63 inches 5'3" Weight 248.00 lb Pain Level 7 Pain at this time. Pain Level With Medicine 5 on average with meds Pain Level Without Medicine 03/05 without meds BMI (Body Mass Index) 43.9 kg/m2 02/25/2018 3:10pm BP Systolic 128 mmHg BP Diastolic 84 mmHg Heart Rate 86 /min Respiratory Rate 20 /min Height 63 inches 5'3" Weight 244.00 lb Pain Level 5 Pain at this time. Pain Level With Medicine 5 on average with meds Pain Level Without Medicine 03/05 without meds BMI (Body Mass Index) 43.2 kg/m2 02/11/2018 3:22pm BP Systolic 140 mmHg BP Diastolic 86 mmHg Heart Rate 76 /min Respiratory Rate 20 /min Height 63 inches 5'3" Weight 245.00 lb Pain Level 8 Pain at this time. Pain Level With Medicine 8 on average with meds Pain Level Without Medicine 03/05 without meds BMI (Body Mass Index) 43.4 kg/m2 01/24/2018 1:59pm BP Systolic 122 mmHg BP Diastolic 74 mmHg Heart Rate 76 /min Respiratory Rate 20 /min Height 63 inches 5'3" Weight 245.00 lb Pain Level 7 Pain at this time. Pain Level With Medicine 6 on average with meds Pain Level Without Medicine 03/05 without meds BMI (Body Mass Index) 43.4 kg/m2 12/26/2017 4:20pm BP Systolic 126 mmHg BP Diastolic 78 mmHg Heart Rate 74 /min Respiratory Rate 20 /min Height 63 inches 5'3" Weight 243.00 lb Pain Level 3 Pain at this time. Pain Level With Medicine 2 on average with meds Pain Level Without Medicine 03/05 without meds BMI (Body Mass Index) 43.0 kg/m2 11/25/2017 2:12pm BP Systolic 120 mmHg BP Diastolic 74 mmHg Heart Rate 88 /min Respiratory Rate 20 /min Height 63 inches 5'3" Weight 244.00 lb Pain Level 7 Pain at this time. Pain Level With Medicine 6 on average with meds Pain Level Without Medicine 03/05 without meds BMI (Body Mass Index) 43.2 kg/m2 11/12/2017 10:39am BP Systolic 128 mmHg BP Diastolic 76 mmHg Heart Rate 74 /min Respiratory Rate 20 /min Height 63 inches 5'3" Weight 244.00 lb Pain Level 7 Pain at this time. Pain Level With Medicine 7 on average with meds Pain Level Without Medicine 03/05 without meds BMI (Body Mass Index) 43.2 kg/m2 10/25/2017 2:37pm BP Systolic 120 mmHg BP Diastolic 74 mmHg Heart Rate 76 /min Respiratory Rate 20 /min Height 63 inches 5'3" Weight 244.00 lb Pain Level 8 Pain at this time. Pain Level With Medicine 7 on average with meds Pain Level Without Medicine 03/05 without meds BMI (Body Mass Index) 43.2 kg/m2 10/08/2017 3:40pm BP Systolic 128 mmHg BP Diastolic 74 mmHg Heart Rate 76 /min Respiratory Rate 20 /min Height 63 inches 5'3" Weight 238.00 lb Pain Level 3 Pain at this time. Pain Level With Medicine 2 on average with meds Pain Level Without Medicine 03/05 without meds BMI (Body Mass Index) 42.2 kg/m2 09/12/2017 4:18pm BP Systolic 132 mmHg BP Diastolic 84 mmHg Heart Rate 86 /min Respiratory Rate 20 /min Height 63 inches 5'3" Weight 234.00 lb Pain Level 6 Pain at this time. Pain Level With Medicine 5 on average with meds Pain Level Without Medicine 03/05 without meds BMI (Body Mass Index) 41.4 kg/m2 08/13/2017 10:49am BP Systolic 130 mmHg BP Diastolic 84 mmHg Heart Rate 86 /min Respiratory Rate 20 /min Height 63 inches 5'3" Weight 240.00 lb Pain Level 7 Pain at this time. Pain Level With Medicine 6 on average with meds Pain Level Without Medicine 03/05 without meds BMI (Body Mass Index) 42.5 kg/m2 07/15/2017 2:10pm BP Systolic 136 mmHg BP Diastolic 84 mmHg Heart Rate 82 /min Respiratory Rate 20 /min Height 63 inches 5'3" Weight 248.00 lb Pain Level 8 Pain at this time. Pain Level With Medicine 7 on average with meds Pain Level Without Medicine 03/05 without meds BMI (Body Mass Index) 43.9 kg/m2 06/26/2017 3:31pm BP Systolic 140 mmHg BP Diastolic 82 mmHg Heart Rate 78 /min Respiratory Rate 20 /min Height 63 inches 5'3" Weight 248.00 lb Pain Level 6 Pain at this time. Pain Level With Medicine 5 on average with meds Pain Level Without Medicine 03/05 without meds BMI (Body Mass Index) 43.9 kg/m2 06/21/2017 1:07pm BP Systolic 128 mmHg BP Diastolic 84 mmHg Heart Rate 86 /min Respiratory Rate 20 /min Height 63 inches 5'3" Weight 248.00 lb Pain Level 7 Pain at this time. Pain Level With Medicine 6 on average with meds Pain Level Without Medicine 03/05 without meds BMI (Body Mass Index) 43.9 kg/m2 05/30/2017 2:53pm BP Systolic 130 mmHg BP Diastolic 84 mmHg Heart Rate 80 /min Respiratory Rate 20 /min Height 63 inches 5'3" Weight 241.00 lb Pain Level 7 Pain at this time. Pain Level With Medicine 6 on average with meds Pain Level Without Medicine 10 03/05 without meds BMI (Body Mass Index) 42.7 kg/m2 05/01/2017 3:37pm BP Systolic 140 mmHg BP Diastolic 82 mmHg Heart Rate 76 /min Respiratory Rate 20 /min Height 63 inches 5'3" Weight 241.00 lb Pain Level 9 Pain at this time. Pain Level With Medicine 8 on average with meds Pain Level Without Medicine 10 03/05 without meds BMI (Body Mass Index) 42.7 kg/m2 04/22/2017 4:10pm BP Systolic 118 mmHg BP Diastolic 78 mmHg Heart Rate 82 /min Respiratory Rate 20 /min Height 63 inches 5'3" Weight 241.00 lb Pain Level 8 Pain at this time. Pain Level With Medicine 6 on average with meds Pain Level Without Medicine 10 03/05 without meds BMI (Body Mass Index) 42.7 kg/m2 04/02/2017 9:29am BP Systolic 130 mmHg BP Diastolic 76 mmHg Heart Rate 74 /min Respiratory Rate 20 /min Height 63 inches 5'3" Weight 241.00 lb Pain Level 5 Pain at this time. Pain Level Without Medicine 10 03/05 without meds BMI (Body Mass Index) 42.7 kg/m2 Results Description No Information Available Procedures Date Code Description Status 06/20/2018 84923 Omt 3-4 Body Regions Completed 06/20/2018 36486 Therapeutic, Prophylactic Or Diagnostic Injection Subq/Im Completed 05/22/2018 84206 Omt 3-4 Body Regions Completed 05/22/2018 53524 Therapeutic, Prophylactic Or Diagnostic Injection Subq/Im Completed 04/24/2018 81975 Omt 3-4 Body Regions Completed 04/24/2018 70304 Therapeutic, Prophylactic Or Diagnostic Injection Subq/Im Completed 04/24/2018 29208 Test Autonomic Nervous System, Sudomotor Completed 04/24/2018 48384 Test Autonomic Nervous System, Cardiovagal Innervation Completed 04/24/2018 27683 Color/Spectral Waveform Doppler Completed 03/25/2018 72049 Therapeutic, Prophylactic Or Diagnostic Injection Subq/Im Completed 03/13/2018 27397 Omt 3-4 Body Regions Completed 02/25/2018 96147 Omt 5-6 Body Regions Completed 02/25/2018 81181 Therapeutic, Prophylactic Or Diagnostic Injection Subq/Im Completed 02/11/2018 34061 Omt 5-6 Body Regions Completed 01/24/2018 90725 Omt 3-4 Body Regions Completed 12/26/2017 81093 Omt 5-6 Body Regions Completed 12/26/2017 49540 Therapeutic, Prophylactic Or Diagnostic Injection Subq/Im Completed 11/25/2017 38762 Omt 1-2 Body Regions Completed 11/12/2017 17470 Omt 3-4 Body Regions Completed 10/25/2017 49077 Omt 3-4 Body Regions Completed 10/08/2017 31554 Omt 3-4 Body Regions Completed 10/08/2017 39625 Therapeutic, Prophylactic Or Diagnostic Injection Subq/Im Completed 09/12/2017 34031 Omt 5-6 Body Regions Completed 07/15/2017 08507 Omt 5-6 Body Regions Completed 05/30/2017 95346 Omt 3-4 Body Regions Completed 05/01/2017 94886 Omt 3-4 Body Regions Completed Encounters Type Date Location Provider Dx Diagnosis Office Visit 06/20/2018 Main Office as Of Scotty Mcdermott DO G89.29 Other chronic pain 11:15a 06/27/13 MPH M54.2 Cervicalgia M99.01 Segmental and somatic dysfunction of cervical region M54.6 Pain in thoracic spine M99.02 Segmental and somatic dysfunction of thoracic region M54.5 Low back pain M99.03 Segmental and somatic dysfunction of lumbar region R53.83 Other fatigue G90.3 Multi-system degeneration of the autonomic nervous system Z79.891 correction (current) use of opiate analgesic Office Visit 05/22/2018 3:30p Main Office as Scotty Mcdermott G89.29 Other chronic Of 06/27/13 , MPH pain M54.5 Low back pain M99.03 Segmental and somatic dysfunction of lumbar region M54.2 Cervicalgia M99.01 Segmental and somatic dysfunction of cervical region M54.6 Pain in thoracic spine M99.02 Segmental and somatic dysfunction of thoracic region Z71.89 Other specified counseling R53.83 Other fatigue Z79.891 correction (current) use of opiate analgesic Office Visit 04/24/2018 2:45p Main Office as Scotty Mcdermott, G89.29 Other chronic Of 06/27/13 DO, MPH pain M54.2 Cervicalgia M99.01 Segmental and somatic dysfunction of cervical region M54.6 Pain in thoracic spine M99.02 Segmental and somatic dysfunction of thoracic region M54.5 Low back pain M99.03 Segmental and somatic dysfunction of lumbar region R53.83 Other fatigue Z79.891 correction (current) use of opiate analgesic G90.3 Multi-system degeneration of the autonomic nervous system Office Visit 03/25/2018 3:45p Main Office as Scotty Mcdermott, G89.29 Other chronic Of 06/27/13 DO, MPH pain M54.2 Cervicalgia M54.6 Pain in thoracic spine M54.5 Low back pain Z79.891 correction (current) use of opiate analgesic R53.83 Other fatigue Office Visit 03/13/2018 2:45p Main Office as Scotty Mcdermott, G89.29 Other chronic Of 06/27/13 DO, MPH pain M54.2 Cervicalgia M99.01 Segmental and somatic dysfunction of cervical region M54.6 Pain in thoracic spine M99.02 Segmental and somatic dysfunction of thoracic region M54.5 Low back pain M99.03 Segmental and somatic dysfunction of lumbar region Z79.891 correction (current) use of opiate analgesic Office Visit 02/25/2018 3:15p Main Office as Scotty Mcdermott G89.29 Other chronic Of 06/27/13 DO, MPH pain M54.2 Cervicalgia M99.01 Segmental and somatic dysfunction of cervical region M54.6 Pain in thoracic spine M99.02 Segmental and somatic dysfunction of thoracic region M54.5 Low back pain M99.03 Segmental and somatic dysfunction of lumbar region M25.551 Pain in right hip M25.552 Pain in left hip M99.05 Segmental and somatic dysfunction of pelvic region R53.83 Other fatigue 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 Office Visit 02/11/2018 3:15p Main Office as Scotty Mcdermott, G89.29 Other chronic Of 06/27/13 DO, MPH pain M54.2 Cervicalgia M99.01 Segmental and somatic dysfunction of cervical region M54.6 Pain in thoracic spine M99.02 Segmental and somatic dysfunction of thoracic region M99.03 Segmental and somatic dysfunction of lumbar region M53.3 Sacrococcygeal disorders, not elsewhere classified M99.04 Segmental and somatic dysfunction of sacral region M25.551 Pain in right hip M25.552 Pain in left hip M99.05 Segmental and somatic dysfunction of pelvic region 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 Office Visit 01/24/2018 1:45p Main Office as Scotty Mcdermott, G89.29 Other chronic Of 06/27/13 DO, MPH pain M54.2 Cervicalgia M99.01 Segmental and somatic dysfunction of cervical region M54.6 Pain in thoracic spine M99.02 Segmental and somatic dysfunction of thoracic region M54.5 Low back pain M99.03 Segmental and somatic dysfunction of lumbar region M53.3 Sacrococcygeal disorders, not elsewhere classified M99.04 Segmental and somatic dysfunction of sacral region 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 Office Visit 12/26/2017 3:45p Main Office as Scotty Mcdermott, G89.29 Other chronic Of 06/27/13 DO, MPH pain M54.2 Cervicalgia M99.01 Segmental and somatic dysfunction of cervical region M54.5 Low back pain M99.03 Segmental and somatic dysfunction of lumbar region M54.6 Pain in thoracic spine M99.02 Segmental and somatic dysfunction of thoracic region M53.3 Sacrococcygeal disorders, not elsewhere classified M99.04 Segmental and somatic dysfunction of sacral region M25.551 Pain in right hip R53.83 Other fatigue 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 M25.552 Pain in left hip M99.05 Segmental and somatic dysfunction of pelvic region Office Visit 11/25/2017 2:00p Main Office as Scotty Mcdermott, G89.29 Other chronic Of 06/27/13 DO, MPH pain M54.5 Low back pain M99.03 Segmental and somatic dysfunction of lumbar region M54.2 Cervicalgia M54.6 Pain in thoracic spine Z79.891 correction (current) use of opiate analgesic Office Visit 11/12/2017 10:45a Main Office as Scotty Mcdermott, G89.29 Other chronic Of 06/27/13 DO, MPH pain M54.2 Cervicalgia M99.01 Segmental and somatic dysfunction of cervical region M54.6 Pain in thoracic spine M99.02 Segmental and somatic dysfunction of thoracic region M54.5 Low back pain M99.03 Segmental and somatic dysfunction of lumbar region 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 Office Visit 10/25/2017 2:30p Main Office as Scotty Mcdermott, G89.29 Other chronic Of 06/27/13 DO, MPH pain M54.2 Cervicalgia M99.01 Segmental and somatic dysfunction of cervical region M54.6 Pain in thoracic spine M99.02 Segmental and somatic dysfunction of thoracic region M54.5 Low back pain M99.03 Segmental and somatic dysfunction of lumbar region Z79.891 correction (current) use of opiate analgesic Office Visit 10/08/2017 3:45p Main Office as Scotty Mcdermott G89.29 Other chronic Of 06/27/13 DO, MPH pain M54.5 Low back pain M99.03 Segmental and somatic dysfunction of lumbar region R10.2 Pelvic and perineal pain M54.2 Cervicalgia M99.01 Segmental and somatic dysfunction of cervical region M54.6 Pain in thoracic spine M99.02 Segmental and somatic dysfunction of thoracic region R53.83 Other fatigue 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 Office Visit 09/12/2017 3:45p Main Office as Scotty Mcdermott G89.29 Other chronic Of 06/27/13 DO, MPH pain M54.2 Cervicalgia M99.01 Segmental and somatic dysfunction of cervical region M54.6 Pain in thoracic spine M99.02 Segmental and somatic dysfunction of thoracic region M54.5 Low back pain M99.03 Segmental and somatic dysfunction of lumbar region M53.3 Sacrococcygeal disorders, not elsewhere classified M99.04 Segmental and somatic dysfunction of sacral region R10.2 Pelvic and perineal pain M99.05 Segmental and somatic dysfunction of pelvic region Z79.891 correction (current) use of opiate analgesic Office Visit 08/13/2017 10:15a Main Office as Scotty Mcdermott G89.29 Other chronic Of 06/27/13 DO, MPH pain M54.5 Low back pain M54.6 Pain in thoracic spine M54.2 Cervicalgia M25.551 Pain in right hip Z79.891 correction (current) use of opiate analgesic Office Visit 07/15/2017 2:00p Main Office as Scotty Mcdermott G89.29 Other chronic Of 06/27/13 DO, MPH pain M54.5 Low back pain M99.03 Segmental and somatic dysfunction of lumbar region M54.6 Pain in thoracic spine M99.02 Segmental and somatic dysfunction of thoracic region M54.2 Cervicalgia M99.01 Segmental and somatic dysfunction of cervical region M53.3 Sacrococcygeal disorders, not elsewhere classified M99.04 Segmental and somatic dysfunction of sacral region M25.551 Pain in right hip M99.05 Segmental and somatic dysfunction of pelvic region Z79.891 correction (current) use of opiate analgesic F17.210 Nicotine dependence, cigarettes, uncomplicated Office Visit 06/26/2017 3:45p Main Office as Scotty Mcdermott G89.29 Other chronic Of 06/27/13 DO, MPH pain M54.5 Low back pain M99.03 Segmental and somatic dysfunction of lumbar region M54.6 Pain in thoracic spine M99.02 Segmental and somatic dysfunction of thoracic region M54.2 Cervicalgia M99.01 Segmental and somatic dysfunction of cervical region F17.210 Nicotine dependence, cigarettes, uncomplicated Z79.891 correction (current) use of opiate analgesic Office Visit 06/21/2017 1:00p Main Office as Scotty Mcdermott G89.29 Other chronic Of 06/27/13 DO, MPH pain M54.2 Cervicalgia M99.01 Segmental and somatic dysfunction of cervical region M54.6 Pain in thoracic spine M99.02 Segmental and somatic dysfunction of thoracic region M54.5 Low back pain M99.03 Segmental and somatic dysfunction of lumbar region F17.210 Nicotine dependence, cigarettes, uncomplicated 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 Office Visit 05/30/2017 2:00p Main Office as Scotty Mcdermott G89.29 Other chronic Of 06/27/13 DO, MPH pain M54.2 Cervicalgia M99.01 Segmental and somatic dysfunction of cervical region M54.6 Pain in thoracic spine M99.02 Segmental and somatic dysfunction of thoracic region M54.5 Low back pain M99.03 Segmental and somatic dysfunction of lumbar region M72.2 Plantar fascial fibromatosis Z79.891 correction (current) use of opiate analgesic Office Visit 05/01/2017 3:30p Main Office as Scotty Mcdermott, G89.29 Other chronic Of 06/27/13 DO, MPH pain M54.5 Low back pain M99.03 Segmental and somatic dysfunction of lumbar region M54.2 Cervicalgia M99.01 Segmental and somatic dysfunction of cervical region M54.6 Pain in thoracic spine M99.02 Segmental and somatic dysfunction of thoracic region M72.2 Plantar fascial fibromatosis Z79.891 correction (current) use of opiate analgesic Office Visit 04/22/2017 4:15p Main Office as Scotty Mcdermott G89.29 Other chronic Of 06/27/13 DO, MPH pain M54.5 Low back pain M72.2 Plantar fascial fibromatosis 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 Infractions of Medication Agreement~b_. ~B_~I_Due to her 4th inconsistent UDT~i_~b_, patient is discharged to [facility]. Discharge paperwork presented and reviewed. Exit interview performed. Patient to present to [facility] and/or PCP for evaluation and treatment and/or referral to another pain clinic or wean off medication. Patient may call at any time for further direct selling counselor. Patient clearly understands.M54.2 CervicalgiaComments:~B_Discharged. Infractions of Medication Agreement~b_. ~B_~I_Due to her 4th inconsistent UDT~ i_~b_, patient is discharged to [facility]. Discharge paperwork presented and reviewed. Exit interview performed. Patient to present to [facility] and/or PCP for evaluation and treatment and/or referral to another pain clinic or wean off medication. Patient may call at any time for further direct selling counselor. Patient clearly understands.M54.6 Pain in thoracic spineComments:~B_Discharged. Infractions of Medication Agreement~b_. ~B_~I_Due to her 4th inconsistent UDT~i_~b_, patient is discharged to [facility]. Discharge paperwork presented and reviewed. Exit interview performed. Patient to present to [facility] and/or PCP for evaluation and treatment and/or referral to another pain clinic or wean off medication. Patient may call at any time for further direct selling counselor. Patient clearly understands.M54.5 Low back painComments:~B_Discharged. Infractions of Medication Agreement~b_. ~B_~I_Due to her 4th inconsistent UDT~i_~b_, patient is discharged to [facility]. Discharge paperwork presented and reviewed. Exit interview performed. Patient to present to [facility] and/or PCP for evaluation and treatment and/or referral to another pain clinic or wean off medication. Patient may call at any time for further direct selling counselor. Patient clearly understands.Z79.891 correction (current) use of opiate analgesicNew Labs:Urine Drug Screen, Ordered: 07/22/18Comments:~B_Urine drug screen sample taken. Rapid Point of Care Cup was reviewed in office with patient. Will send out UDT Rapid to Quantitative lab for confirmation testing. Urine Drug Testing (UDT) was donetoday to monitor opiate use and to monitor possible use of illicit substances. I will discuss the results at the next appointment from the Quantitative lab.~b_The following tests were ordered:6 AM, AMPH, PAULA, CHEVY, BUP , CARIS, COCM, COT, ETG, FENT, MCSHSG, OPI, OXY, PCP, TAPEN, XTSY, ZOLP. ~I_A urine drug test (UDT) was ordered for this patient and collected on site today. Creatinine has been ordered as well for specimen validity, not for kidney function. Preliminary UDT results are not final and should not be used to determine patient care or plan of treatment. Initially a qualitative immunoassay screen will be done. Any inconsistent or positive findings will be further tested with a more comprehensive quantitative confirmation LCMS study. It is part of the treatment process of prescribing controlled substances and is considered standard of care.~i_ ~B_~b_Z71.89 Other specified counselingComments:~B_Discharged. Infractions of Medication Agreement~b_. ~B_~ I_Due to her 4th inconsistent UDT~i_~b_, patient is discharged to [facility]. Discharge paperwork presented and reviewed. Exit interview performed. Patient to present to [facility] and/or PCP for evaluation and treatment and/or referral to another pain clinic or wean off medication. Patient may call at any time for further direct selling counselor. Patient clearly understands.AllComments:~B_Discharged. Infractions of Medication Agreement~b_. ~B_~I_Due to her 4th inconsistent UDT~ i_~b_, patient is discharged to [facility]. Discharge paperwork presented and reviewed. Exit interview performed. Patient to present to [facility] and/or PCP for evaluation and treatment and/or referral to another pain clinic or wean off medication. Patient may call at any time for further direct selling counselor. Patient clearly understands. ~B_~I_Discharged - see above.~i_~b_ May continue opioid pain management for 15 days or wean off; Side effects discussed; anticipatory guidance given. Patient clearly understands and agrees with all medical treatments and suggestions. All medicines prescribed are adequate and appropriate for this patient's complaint of pain, medical history, physical, and personal goals.Goals of Treatment are to provide adequate and appropriate multidisciplinary medical pain management to increase/ maintain patient's quality of life and functionality while maintaining satisfactory side effect profile andminimizing correction end-organ damage. Activity as toleratedReturn to PCP and referred to [facility].
--- OUTSIDE RECORDS SUMMARY | 2018-08-18 02:28 | XMS REPORT | Continuity of Care Document ---
:1995 External Reference #:[id number] Author Name Scotty Mcdermott DO, MPH Address [address] [place] [address], [address] [place] [address] Care Team Providers Name Role Phone Guillermina Crenshaw M.D. Care Team Information Th[employer]her [employer] Unavailable Fannie Beth M.D. Primary Care Physician Unavailable Payers Date Identification Numbers Payment Provider Subscriber Effective: 2017 Policy Number: [id number] [facility] Shilpa Domínguez PayID: [id number] [employer] [address] [place] [address] Expires: 2017 Policy Number: [id number] Medicaid [place] Shilpa Domínguez PayID: [id number] [address] [place] [address] Expires: 2017 Policy Number: [id number] [employer]/[place] [facility] Shilpa Domínguez PayID: [id number] [address] [address] [place] [address] Advance Directives Description No Information Available Problems Description No Information Family History Date Family Member(s) Observation Comments Father due to Drug Overdose () Mother 45 Children 1 Siblings 4 Social History Type Date Description Comments Sex Unknown Marital Status Lives With Spouse 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 ETOH Use Rarely [...] Available Procedures Date Code Description Status 06/20/2018 66293 Omt 3-4 Body Regions Completed 06/20/2018 59194 Therapeutic, Prophylactic Or Diagnostic Injection Subq/Im Completed 05/22/2018 34468 Omt 3-4 Body Regions Completed 05/22/2018 80823 Therapeutic, Prophylactic Or Diagnostic Injection Subq/Im Completed 04/24/2018 16144 Omt 3-4 Body Regions Completed 04/24/2018 27188 Therapeutic, Prophylactic Or Diagnostic Injection Subq/Im Completed 04/24/2018 20803 Test Autonomic Nervous System, Sudomotor Completed 04/24/2018 93582 Test Autonomic Nervous System, Cardiovagal Innervation Completed 04/24/2018 16400 Color/Spectral Waveform Doppler Completed 03/25/2018 85904 Therapeutic, Prophylactic Or Diagnostic Injection Subq/Im Completed 03/13/2018 51595 Omt 3-4 Body Regions Completed 02/25/2018 94520 Omt 5-6 Body Regions Completed 02/25/2018 01554 Therapeutic, Prophylactic Or Diagnostic Injection Subq/Im Completed 02/11/2018 45864 Omt 5-6 Body Regions Completed 01/24/2018 04690 Omt 3-4 Body Regions Completed 12/26/2017 32415 Omt 5-6 Body Regions Completed 12/26/2017 21252 Therapeutic, Prophylactic Or Diagnostic Injection Subq/Im Completed 11/25/2017 98807 Omt 1-2 Body Regions Completed 11/12/2017 10123 Omt 3-4 Body Regions Completed 10/25/2017 21760 Omt 3-4 Body Regions Completed 10/08/2017 40397 Omt 3-4 Body Regions Completed 10/08/2017 67688 Therapeutic, Prophylactic Or Diagnostic Injection Subq/Im Completed 09/12/2017 99842 Omt 5-6 Body Regions Completed 07/15/2017 74786 Omt 5-6 Body Regions Completed 05/30/2017 57117 Omt 3-4 Body Regions Completed 05/01/2017 52272 Omt 3-4 Body Regions Completed Encounters Type [...] degeneration of the autonomic nervous system Z79.891 senior living (current) use of opiate analgesic Office Visit [...] Other specified counseling R53.83 Other fatigue Z79.891 senior living (current) use of opiate analgesic Office Visit 04/24/2018 2:45p Main Office as Scotty Mcdermott, G89.29 Other chronic Of 06/27/13 DO, MPH pain M54.2 Cervicalgia M99.01 Segmental and somatic dysfunction of cervical region M54.6 Pain in thoracic spine M99.02 Segmental and somatic dysfunction of thoracic region M54.5 Low back pain M99.03 Segmental and somatic dysfunction of lumbar region R53.83 Other fatigue Z79.891 senior living (current) use of opiate analgesic G90.3 Multi-system degeneration of the autonomic nervous system Office Visit 03/25/2018 3:45p Main Office as Scotty Mcdermott, G89.29 Other chronic Of 06/27/13 DO, MPH pain M54.2 Cervicalgia M54.6 Pain in thoracic spine M54.5 Low back pain Z79.891 senior living (current) use of opiate analgesic R53.83 Other fatigue Office Visit 03/13/2018 2:45p Main Office as Scotty Mcdermott, G89.29 Other chronic Of 06/27/13 DO, MPH pain M54.2 Cervicalgia M99.01 Segmental and somatic dysfunction of cervical region M54.6 Pain in thoracic spine M99.02 Segmental and somatic dysfunction of thoracic region M54.5 Low back pain M99.03 Segmental and somatic dysfunction of lumbar region Z79.891 senior living (current) use of opiate analgesic Office Visit [...] of pelvic region R53.83 Other fatigue 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 Office Visit [...] and somatic dysfunction of pelvic region 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 Office Visit [...] and somatic dysfunction of sacral region 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 Office Visit [...] in right hip R53.83 Other fatigue 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 M25.552 Pain in left hip M99.05 Segmental and somatic dysfunction of pelvic region Office Visit 11/25/2017 2:00p Main Office as Scotty Mcdermott, G89.29 Other chronic Of 06/27/13 DO, MPH pain M54.5 Low back pain M99.03 Segmental and somatic dysfunction of lumbar region M54.2 Cervicalgia M54.6 Pain in thoracic spine Z79.891 senior living (current) use of opiate analgesic Office Visit 11/12/2017 10:45a Main Office as Scotty Mcdermott, G89.29 Other chronic Of 06/27/13 DO, MPH pain M54.2 Cervicalgia M99.01 Segmental and somatic dysfunction of cervical region M54.6 Pain in thoracic spine M99.02 Segmental and somatic dysfunction of thoracic region M54.5 Low back pain M99.03 Segmental and somatic dysfunction of lumbar region 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 Office Visit 10/25/2017 2:30p Main Office as Scotty Mcdermott, G89.29 Other chronic Of 06/27/13 DO, MPH pain M54.2 Cervicalgia M99.01 Segmental and somatic dysfunction of cervical region M54.6 Pain in thoracic spine M99.02 Segmental and somatic dysfunction of thoracic region M54.5 Low back pain M99.03 Segmental and somatic dysfunction of lumbar region Z79.891 senior living (current) use of opiate analgesic Office Visit [...] of thoracic region R53.83 Other fatigue 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 Office Visit [...] and somatic dysfunction of pelvic region Z79.891 senior living (current) use of opiate analgesic Office Visit 08/13/2017 10:15a Main Office as Scotty Mcdermott G89.29 Other chronic Of 06/27/13 DO, MPH pain M54.5 Low back pain M54.6 Pain in thoracic spine M54.2 Cervicalgia M25.551 Pain in right hip Z79.891 senior living (current) use of opiate analgesic Office Visit [...] and somatic dysfunction of pelvic region Z79.891 senior living (current) use of opiate analgesic F17.210 Nicotine [...] region F17.210 Nicotine dependence, cigarettes, uncomplicated Z79.891 senior living (current) use of opiate analgesic Office Visit 06/21/2017 1:00p Main Office as Scotty Mcdermott G89.29 Other chronic Of 06/27/13 DO, MPH pain M54.2 Cervicalgia M99.01 Segmental and somatic dysfunction of cervical region M54.6 Pain in thoracic spine M99.02 Segmental and somatic dysfunction of thoracic region M54.5 Low back pain M99.03 Segmental and somatic dysfunction of lumbar region F17.210 Nicotine dependence, cigarettes, uncomplicated 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 Office Visit 05/30/2017 2:00p Main Office as Scotty Mcdermott G89.29 Other chronic Of 06/27/13 DO, MPH pain M54.2 Cervicalgia M99.01 Segmental and somatic dysfunction of cervical region M54.6 Pain in thoracic spine M99.02 Segmental and somatic dysfunction of thoracic region M54.5 Low back pain M99.03 Segmental and somatic dysfunction of lumbar region M72.2 Plantar fascial fibromatosis Z79.891 senior living (current) use of opiate analgesic Office Visit 05/01/2017 3:30p Main Office as Scotty Mcdermott, G89.29 Other chronic Of 06/27/13 DO, MPH pain M54.5 Low back pain M99.03 Segmental and somatic dysfunction of lumbar region M54.2 Cervicalgia M99.01 Segmental and somatic dysfunction of cervical region M54.6 Pain in thoracic spine M99.02 Segmental and somatic dysfunction of thoracic region M72.2 Plantar fascial fibromatosis Z79.891 senior living (current) use of opiate analgesic Office Visit 04/22/2017 4:15p Main Office as Scotty Mcdermott G89.29 Other chronic Of 06/27/13 DO, MPH pain M54.5 Low back pain M72.2 Plantar fascial fibromatosis 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 Infractions of Medication Agreement~b_. ~B_~I_Due to her 4th inconsistent UDT~i_~b_, patient is discharged to [facility]. Discharge paperwork presented and reviewed. Exit interview performed. Patient to present to [facility] and/or PCP for evaluation and treatment and/or referral to another pain clinic or wean off medication. Patient may call at any time for further cemetery counselor. Patient clearly understands.M54.2 CervicalgiaComments:~B_Discharged. Infractions of Medication Agreement~b_. ~B_~I_Due to her 4th inconsistent UDT~ i_~b_, patient is discharged to [facility]. Discharge paperwork presented and reviewed. Exit interview performed. Patient to present to [facility] and/or PCP for evaluation and treatment and/or referral to another pain clinic or wean off medication. Patient may call at any time for further cemetery counselor. Patient clearly understands.M54.6 Pain in thoracic spineComments:~B_Discharged. Infractions of Medication Agreement~b_. ~B_~I_Due to her 4th inconsistent UDT~i_~b_, patient is discharged to [facility]. Discharge paperwork presented and reviewed. Exit interview performed. Patient to present to [facility] and/or PCP for evaluation and treatment and/or referral to another pain clinic or wean off medication. Patient may call at any time for further cemetery counselor. Patient clearly understands.M54.5 Low back painComments:~B_Discharged. Infractions of Medication Agreement~b_. ~B_~I_Due to her 4th inconsistent UDT~i_~b_, patient is discharged to [facility]. Discharge paperwork presented and reviewed. Exit interview performed. Patient to present to [facility] and/or PCP for evaluation and treatment and/or referral to another pain clinic or wean off medication. Patient may call at any time for further cemetery counselor. Patient clearly understands.Z79.891 senior living (current) use of opiate analgesicNew Labs:Urine Drug [...] 4th inconsistent UDT~i_~b_, patient is discharged to [facility]. Discharge paperwork presented and reviewed. Exit interview performed. Patient to present to [facility] and/or PCP for evaluation and treatment and/or referral to another pain clinic or wean off medication. Patient may call at any time for further cemetery counselor. Patient clearly understands.AllComments:~B_Discharged. Infractions of Medication Agreement~b_. ~B_~I_Due to her 4th inconsistent UDT~ i_~b_, patient is discharged to [facility]. Discharge paperwork presented and reviewed. Exit interview performed. Patient to present to [facility] and/or PCP for evaluation and treatment and/or referral to another pain clinic or wean off medication. Patient may call at any time for further cemetery counselor. Patient clearly understands. ~B_~I_Discharged - see [...] as toleratedReturn to PCP and referred to [facility].
--- OUTSIDE RECORDS SUMMARY | 2018-08-18 02:28 | XMS REPORT | Continuity of Care Document ---
:1995 External Reference #:[id number] Author Name Nunez, Jenna Care Team Providers Name Role Phone Fannie Beht M.D. Primary Care Physician Unavailable Payers Date Identification Numbers Payment Provider Subscriber Policy Number: [id number] Crow Domínguez PayID: [id number] [address] [place] [address] Advance Directives Description No Information Available Problems Date Description Provider Status Onset: 05/15/2018 Degeneration of lumbar Meng Gilbert MD Active intervertebral disc Onset: 05/15/2018 Low back pain Meng Gilbert MD Active Onset: 05/15/2018 Pain in axilla Meng Gilbert MD Active Onset: 05/15/2018 Tobacco user Meng Gilbert MD Active Onset: 05/15/2018 Insomnia Meng Gilbert MD Active Onset: 08/07/2018 Morbid obesity Juan Carlos Gilbert M.D.,FACP Family History Date Family Member(s) Observation Comments Father due to Drug Overdose () - heroin, mid 40s Father Alcoholism Mother Pulmonary Embolism (Pe) Mother Deep Venous Thrombosis (DVT) Mother Protein S Deficiency Social History Type Date Description Comments Sex Unknown Marital Status Lives With and daughter Occupation Homemaker ETOH Use Denies alcohol use Tobacco Use Start: Unknown Light tobacco smoker (10 or fewer cigarettes/day) Recreational Drug Use Denies Drug Use Smoking Status Reviewed: 08/07/18 Light tobacco smoker (10 or fewer cigarettes/day) Allergies, Adverse Reactions, Alerts Date Description Reaction Status Severity Comments 05/15/2018 Phentermine Active Medications Medication Date Status Form Strength Qnty SIG Indications Ordering Provider Alpha Lipoic Acid 08/07 Active Capsules 200mg 3 tabs qd Luis Carpenter M.D.,FACP Gabapentin 08/07 Active Capsules 100mg 180ca 1 po qid ps for 4d, Luis Carpenter, then 2 po [place].Luis,FACP qid for 4d, then 3 qid for 4d,then 4 qid ongoing Amitriptyline HCL 06/24 Active Tablets 25mg 30tab one po at M54.16 s bedtime MD Ignacia Melatonin Gummies 05/15 Active Chewtabs 2.5mg 30uni 1 tab every G47.00 ts night at MD Vladimir bedtime Hydrocodone-Acetam Active Tablets 10-325mg 120ta 1 tab by [place] bs mouth every Varn, 6 hours N.P. Tizanidine HCL Active Tablets 2mg 30tab 1-2 tabs by s mouth as Ignacia, needed at MD night for spasms--pt takes 3 mgs (1.5 tab) Mirena (52 MG) Active IUD 20mcg/24H Unknown R Cyanocobalamin Active Solution 1000mcg/M ( Not Unknown / L Taking) 1 milliliters intramuscul ar [id number] Ibuprofen Hx Tablets 800mg 1 by mouth three times - a day w 07/09 food needed pain Naproxen Sodium Hx Tablets 550mg Unknown /0000 - 06/24 Hydrocodone-Acetam Hx Tablets 5-325mg leda Mcdermott Scotty, DO - 06/24 Lidocaine Hx Patches 5% Apply 1 / Patch - Transdermal 06/24 ly For Hours A Day Methylprednisolone Hx TBPK 4mg take as / directed on - pack 06/24 Ala Hx recommended by Dr Mcdermott - for never 08/07 Immunizations Description No Information Available Vital Signs Date Vital Result Comment 08/07/2018 8:43am Height 60 inches 5'0" Weight 267.00 lb Heart Rate 101 /min BP Systolic 126 mmHg BP Diastolic 80 mmHg Body Temperature 97.6 F O2 % BldC Oximetry 97 % BMI (Body Mass Index) 52.1 kg/m2 07/09/2018 2:03pm Height 60 inches 5'0" Weight 259.00 lb Heart Rate 99 /min BP Systolic 146 mmHg BP Diastolic 99 mmHg Body Temperature 97.5 F O2 % BldC Oximetry 100 % BMI (Body Mass Index) 50.6 kg/m2 06/24/2018 3:07pm Height 60 inches 5'0" Weight 261.00 lb with shoes Heart Rate 70 /min BP Systolic 122 mmHg BP Diastolic 76 mmHg O2 % BldC Oximetry 98 % BMI (Body Mass Index) 51.0 kg/m2 06/02/2018 3:47pm Height 60 inches 5'0" Weight 256.00 lb BP Systolic Sitting 128 mmHg BP Diastolic Sitting 80 mmHg Pain Level 6 BMI (Body Mass Index) 50.0 kg/m2 05/15/2018 9:28am Weight 256.00 lb Heart Rate 70 /min BP Systolic 118 mmHg BP Diastolic 78 mmHg Respiratory Rate 16 /min Body Temperature 98.6 F Pain Level 7 back and Rle O2 % BldC Oximetry 99 % Results Test Date Facility Test Result H/L Range Note Drug Abuse 07/09/2018 [facility] Urine Amphetamine Negative ng/ mL [address] [place] [id number] [phone] Urine Barbiturates Negative ng/mL 2 Urine Benzodiazepines Negative ng/mL 3 Urine Cocaine Negative ng/mL 4 Urine Phencyclidine Negative ng/mL Cutoff: 25 Urine Tetrahydrocannabinol Negative ng/mL Cutoff: 50 5 Creatinine, Urine 92.8 mg/dL Specific [place] 1.005 pH 7.5 Oxidants Negative 6 Adulterants Comment Normal Codeine, Ur Not Detected ng/mL Cutoff: 25 7 Ikqpjqc-6-yanl-glucuronide, Ur Not Detected ng/mL 8 Morphine, Ur Not Detected ng/mL Cutoff: 25 9 Dablscmx-3-rcwt-glucuronide, U Not Detected ng/mL 10 6-monoacetylmorphine, Ur Not Detected ng/mL Cutoff: 25 11 Hydrocodone, Ur Present ng/mL Abnormal Cutoff: 25 12 Norhydrocodone, Ur Present ng/mL Abnormal Cutoff: 25 13 Dihydrocodeine, Ur Present ng/mL Abnormal Cutoff: 25 14 Hydromorphone, Ur Not Detected ng/mL Cutoff: 25 15 Lsefrpwsrzitz2kxkgyntwzhjupwh Present ng/mL Abnormal 16 Oxycodone, Ur Not Detected ng/mL Cutoff: 25 17 Noroxycodone, Ur Not Detected ng/mL Cutoff: 25 18 Oxymorphone, Ur Not Detected ng/mL Cutoff: 25 19 Jcbyqojdije-1-torj-glucuronide Not Detected ng/mL 20 Noroxymorphone, Ur Not Detected ng/mL Cutoff: 25 21 Fentanyl, Ur Not Detected ng/mL Cutoff: 2 22 Norfentanyl, Ur Not Detected ng/mL Cutoff: 2 23 Meperidine, Ur Not Detected ng/mL Cutoff: 25 24 Normeperidine, Ur Not Detected ng/mL Cutoff: 25 25 Naloxone, Ur Not Detected ng/mL Cutoff: 25 26 Iblajmze-5-lrfq-glucuronide, U Not Detected ng/mL 27 Methadone, Ur Not Detected ng/mL Cutoff: 25 28 Eddp, Ur Not Detected ng/mL Cutoff: 25 29 Propoxyphene, Ur Not Detected ng/mL Cutoff: 25 30 Norpropoxyphene, Ur Not Detected ng/mL Cutoff: 25 31 Tramadol, Ur Not Detected ng/mL Cutoff: 25 32 O-desmethyltramadol, Ur Not Detected ng/mL Cutoff: 25 33 Tapentadol, Ur Not Detected ng/mL Cutoff: 25 34 N-desmethyltapentadol, Ur Not Detected ng/mL Cutoff: 50 35 Tvwdabwuxg-fclh-khpftwavfwn, U Not Detected ng/mL 36 Buprenorphine, Ur Not Detected ng/mL Cutoff: 5 37 Norbuprenorphine, Ur Not Detected ng/mL Cutoff: 5 38 Norbuprenorphine glucuronide Not Detected ng/mL Cutoff: 20 39 Opioid Interpretation See Comment 40 1 REFERENCE VALUE Cutoff: 500 2 REFERENCE VALUE Cutoff: 200 3 REFERENCE VALUE Cutoff: 100 4 REFERENCE VALUE Cutoff: 150 5 ADDITIONAL INFORMATION This report is intended for use in clinical monitoring or management of patients. It is not intended for use in employment-related testing. 6 REFERENCE VALUE Cutoff: 200 mg/L 7 Tylenol 3 8 Metabolite of codeine REFERENCE VALUE Cutoff: 100 9 Isabela Sun, MS Contin; Also a minor metabolite (10%) of codeine and can be seen in low concentrations (<2,000 ng/mL) with poppy seed ingestion. 10 Metabolite of morphine REFERENCE VALUE Cutoff: 100 11 Metabolite of heroin 12 Lortab, [place], Vicodin; Also a very minor metabolite of codeine and impurity (<1%) of oxycodone. 13 Metabolite of hydrocodone 14 Metabolite of hydrocodone 15 Dilaudid, Exalgo; Also a metabolite of hydrocodone and a minor (<5%) metabolite of morphine. 16 Metabolite of hydromorphone REFERENCE VALUE Cutoff: 100 17 Endocet, Percocet, Oxycontin 18 Metabolite of oxycodone 19 Numorphan, Opana; Also a metabolite of oxycodone. 20 Metabolite of oxymorphone REFERENCE VALUE Cutoff: 100 21 Metabolite of oxymorphone 22 Actiq, Duragesic, Fent[place] 23 Metabolite of fentanyl 24 Demerol 25 Metabolite of meperidine 26 Narcan 27 Metabolite of naloxone REFERENCE VALUE Cutoff: 100 28 Dolophine 29 Metabolite of methadone 30 Darvon, Darvocet 31 Metabolite of propoxyphene 32 Tradol, Ultram, Ultracet 33 Metabolite of tramadol 34 Nucynta 35 Metabolite of tapentadol 36 Metabolite of tapentadol REFERENCE VALUE Cutoff: 100 37 Buprenex, Suboxone 38 Metabolite of buprenorphine 39 Metabolite of buprenorphine 40 Test detected the presence of hydrocodone, two of its metabolites (norhydrocodone and dihydrocodeine), and maiibjebbudnp-4-aumz-glucuronide (metabolite of hydromorphone). Suspect use of hydrocodone and/or hydromorphone within the past three days. Trace amounts of hydrocodone can also be found as an impurity in hydromorphone. ADDITIONAL INFORMATION This test was developed and its performance characteristics determined by [facility] in a manner consistent with CLIA requirements. This test has not been cleared or approved by the U.S. Food and Drug Administration. Test Performed by: [facility] [place] - [address] [address] Procedures Description No Information Available Encounters Type Date Location Provider Dx Diagnosis Office Visit 07/09/2018 [facility] Fannie Beth MD G89.4 Chronic pain 2:00p Medicine - [address] R03.0 Elevated blood-pressure reading, w/o diagnosis of htn Office Visit 06/24/2018 3:20p [facility] Fannie Beth, M54.16 Radiculopathy, Medicine - MD lumbar region [address] G47.00 Insomnia, unspecified F17.210 Nicotine dependence, cigarettes, uncomplicated 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 Office Visit 06/02/2018 [facility] Rema Martinez M51.36 Other intervertebral 4:00p Of [facility]LE disc degeneration, lumbar region Office Visit 05/15/2018 [facility] Mengtyler Hernandezd, M79.622 Pain in left upper 8:40a [facility] arm M54.5 Low back pain M51.36 Other intervertebral disc degeneration, lumbar region F17.210 Nicotine dependence, cigarettes, uncomplicated G47.00 Insomnia, unspecified Plan of Treatment Future Appointment(s):08/19/2018 3:20 pm - Fannie Beth MD at [facility] Medicine - [address]/07/2018 - Kevin Carpenter M.D.,FACPM51.36 Other intervertebral disc degeneration, lumbar regionComments:Begin taking Gabapentin as prescribed. Discussed possible side effects including weight gain. Advised low carb diet. Continue taking other medications as prescribed. Follow up with the pain clinic as planned. Complete bloodwork prior to your next visit.
[2018-08-18] MEDS ORDERED: predniSONE TAB* 50 MG PO ONE (02:56)
[2018-08-18] MEDS ORDERED: Amoxicillin/Clavulanate TAB* 875 MG PO ONE (02:56)
[2018-08-18] MEDS ORDERED: Ibuprofen TAB* 400 MG PO ONE (02:56)
--- NOTE | 2018-08-18 02:57 | ED ---
Throat Pain/Nasal Congestion - HPI Summary HPI Summary: This patient is a 23 year old F presenting to [facility] accompanied by family with a chief complaint of sore throat that began one week ago. The patient rates the pain 8/10 in severity. Symptoms aggravated by swallowing. Symptoms alleviated by nothing. Patient reports nasal congestion and yellow discharge on tonsils. Patient denies fever. - History of Current Complaint Chief Complaint: EDThroatPain Time Seen by Provider: 08/18/18 02:50 Hx Obtained From: Patient Onset/Duration: Sudden Onset, Lasting Weeks, Still Present Severity: Severe - Allergies/Home Medications Allergies/Adverse Reactions: Allergies Allergy/AdvReac Type Severity Reaction Status Date / Time phentermine AdvReac Hives Verified 08/14/18 13:56 PMH/Surg Hx/FS Hx/Imm Hx Previously Healthy: No Endocrine/Hematology History: Reports: Hx Anticoagulant Therapy Denies: Hx Diabetes Cardiovascular History: Reports: Hx Deep Vein Thrombosis Denies: Hx Hypertension, Hx Pacemaker/ICD Respiratory History: Reports: Hx Asthma - INHALER PRN Musculoskeletal History: Reports: Hx Back Problems, Other Musculoskeletal History - Degenerative disc disease, Chronic back pain Sensory History: Denies: Hx Hearing Aid Neurological History: Reports: Other Neuro Impairments/Disorders - Spinal stenosis and chipped and bulging discs in the L-spine. Psychiatric History: Denies: Hx Depression, Hx Panic Disorder - Cancer History Cancer Type, Location and Year: None reported - Surgical History Surgery Procedure, Year, and Place: WISDOM TEETH - Immunization History Date of Tetanus Vaccine: pt states unsure Date of Influenza Vaccine: none Infectious Disease History: No Infectious Disease History: Denies: Traveled Outside the [place] in Last 30 Days - Family History Known Family History: Positive: Hypertension, Diabetes - Social History Occupation: Employed Full-time Lives: With Family Alcohol Use: None Hx Substance Use: No Substance Use Type: Reports: None Hx Tobacco Use: Yes Smoking Status (MU): Current Every Day Smoker Type: Cigarettes Amount Used/How Often: 1/2 PPD Have You Smoked in the Last Year: Yes Review of Systems Negative: Fever ENT: Other - Positive nasal congestion Positive: Sore Throat, Other - Positive yellow discharge on tonsils All Other Systems Reviewed And Are Negative: Yes Physical Exam - Summary Physical Exam Summary: VITAL SIGNS: Reviewed. GENERAL: Patient is a well-developed and nourished female who is lying comfortable in the stretcher. Patient is not in any acute respiratory distress. HEAD AND FACE: No signs of trauma. No ecchymosis, hematomas or skull depressions. Tenderness over the maxillary sinuses bilaterally. EYES: PERRLA, EOMI x 2, No injected conjunctiva, no nystagmus. EARS: Hearing grossly intact. Ear canals and tympanic membranes are within normal limits. MOUTH: Oropharynx within normal limits. Pharyngeal hyperemia with no exudate. NECK: Supple, trachea is midline, no JVD, no carotid bruit, no c-spine tenderness, neck with full ROM. Tenderness over the cervical lymph nodes. CHEST: Symmetric, no tenderness at palpation LUNGS: Clear to auscultation bilaterally. No wheezing or crackles. CVS: Regular rate and rhythm, S1 and S2 present, no murmurs or gallops appreciated. ABDOMEN: Soft, non-tender. No signs of distention. No rebound no guarding, and no masses palpated. Bowel sounds are normal. EXTREMITIES: FROM in all major joints, no edema, no cyanosis or clubbing. NEURO: Alert and oriented x 3. No acute neurological deficits. Speech is normal and follows commands. SKIN: Dry and warm Triage Information Reviewed: Yes Vital Signs On Initial Exam: Initial Vitals Temp Pulse Resp BP Pulse Ox 97.8 F 103 18 132/89 100 08/18/18 02:21 08/18/18 02:21 08/18/18 02:21 08/18/18 02:21 08/18/18 02:21 Vital Signs Reviewed: Yes Diagnostics - Vital Signs Vital Signs Temp Pulse Resp BP Pulse Ox 08/18/18 02:21 97.8 F 103 18 132/89 100 - Laboratory Lab Statement: Any lab studies that have been ordered have been reviewed, and results considered in the medical decision making process. EENT Course/Dx - Course Course Of Treatment: This patient is a 23 year old F presenting to [facility] accompanied by family with a chief complaint of sore throat that began one week ago. Physical Exam Findings: Pharyngeal hyperemia with no exudate. Tenderness over the maxillary sinuses bilaterally. Tenderness over the cervical lymph nodes. In the ED course the patient was given ibuprofen, prednisone, and Augmentin. Patient will be discharged with prescription for Augmentin, Motrin, and prednisone and with follow up from PCP. The patient is agreeable with this plan. - Diagnoses Provider Diagnoses: Sinusitis Discharge - Sign-Out/Discharge Documenting (check all that apply): Patient Departure - Discharge home Patient Received Moderate/Deep Sedation with Procedure: No - Discharge Plan Condition: Stable Disposition: HOME Prescriptions: Amoxicillin/Clavulanate TAB* [Augmentin TAB 875*] 875 mg PO BID #20 tab Ibuprofen TAB* [Motrin TAB* 800 MG] 800 mg PO Q6H PRN #30 tab PRN Reason: Pain predniSONE TAB* [Deltasone TAB*] 50 mg PO DAILY #5 tab Patient Education Materials: Sinusitis (ED) Referrals: Fannie Beth MD [Primary Care Provider] - 2 Days Additional Instructions: RETURN TO THE EMERGENCY DEPARTMENT FOR NEW OR WORSENING SYMPTOMS - Attestation Statements Document Initiated by Scribe: Yes Documenting Scribe: Jenny Larson Provider For Whom Kaleigh is Documenting (Include Credential): Dr. Inna Boothe MD Scribe Attestation: Jenny Rogers, scribed for Dr. Inna Boothe MD on 08/18/18 at 0357. Status of Scribe Document: Ready
[2018-08-18 03:41] LABS: Influenza A Molecular NEGATIVE (Negative); Influenza B Molecular NEGATIVE (Negative)
[2018-08-18 04:18] VITALS: BP 117/78
== END 2018-08-18 04:17 | disposition home or self-care (01) ==
LOC: ED 02:17
DX: J32.9 Chronic sinusitis, unspecified (principal); Z86.718 Personal history of other venous thrombosis and embolism; Z79.01 Long term (current) use of anticoagulants; Z88.8 Allergy status to other drugs, medicaments and biological substances; J45.909 Unspecified asthma, uncomplicated; F17.210 Nicotine dependence, cigarettes, uncomplicated
CPT/HCPCS: 87651; 99282; A9270-GY; J7512

== ENCOUNTER 2018-12-10 13:15 | Emergency (ER) | payer BC ==
[2018-12-10] MEDS ORDERED: Morphine 10 MG/ML VIAL (1 ml) IM ONE (14:55)
--- NOTE | 2018-12-10 15:17 | ED ---
Back Pain - HPI Summary HPI Summary: 23 year old female presents with back pain for the past week. She has a history of back pain. She states the pain is become more intense. She has been having constipation which has been increasing the pain. no loss of bowel or bladder. No saddle anesthesia. No fevers. Takes gabapentin hydrocodone and amitriptyline for the pain. She's been taking the medication without relief. able to ambulate. no weakness. - History of Current Complaint Chief Complaint: EDBackInjuryPain Stated Complaint: LOWER BACK PAIN/SHAKY PER PT Time Seen by Provider: 12/10/18 14:40 Hx Last Menstrual Period: 1 1/2 WEEKS AGO Pain Intensity: 8 - Allergies/Home Medications Allergies/Adverse Reactions: Allergies Allergy/AdvReac Type Severity Reaction Status Date / Time phentermine AdvReac Hives Verified 10/02/18 13:36 PMH/Surg Hx/FS Hx/Imm Hx Endocrine/Hematology History: Reports: Hx Anticoagulant Therapy Denies: Hx Diabetes Cardiovascular History: Reports: Hx Deep Vein Thrombosis Denies: Hx Hypertension, Hx Pacemaker/ICD Respiratory History: Reports: Hx Asthma - INHALER PRN Musculoskeletal History: Reports: Hx Back Problems, Other Musculoskeletal History - Degenerative disc disease, Chronic back pain Sensory History: Denies: Hx Hearing Aid Neurological History: Reports: Other Neuro Impairments/Disorders - Spinal stenosis and chipped and bulging discs in the L-spine. Psychiatric History: Denies: Hx Depression, Hx Panic Disorder - Cancer History Cancer Type, Location and Year: None reported - Surgical History Surgery Procedure, Year, and Place: WISDOM TEETH - Immunization History Date of Tetanus Vaccine: pt states unsure Date of Influenza Vaccine: none Infectious Disease History: No Infectious Disease History: Denies: Traveled Outside the [place] in Last 30 Days - Family History Known Family History: Positive: Hypertension, Diabetes - Social History Alcohol Use: None Hx Substance Use: No Substance Use Type: Reports: Marijuana Hx Tobacco Use: Yes Smoking Status (MU): Current Every Day Smoker Type: Cigarettes Amount Used/How Often: 1/2 PPD Have You Smoked in the Last Year: Yes Review of Systems Negative: Fever Negative: Chest Pain Negative: Shortness Of Breath Positive: Myalgia - back pain All Other Systems Reviewed And Are Negative: Yes Physical Exam Triage Information Reviewed: Yes Vital Signs On Initial Exam: Initial Vitals Temp Pulse Resp BP Pulse Ox 98.5 F 86 16 140/102 98 12/10/18 13:17 12/10/18 13:17 12/10/18 13:17 12/10/18 13:17 12/10/18 13:17 Vital Signs Reviewed: Yes Appearance: Positive: Well-Appearing Skin: Positive: Warm, Dry Head/Face: Positive: Normal Head/Face Inspection Eyes: Positive: Normal, Conjunctiva Clear ENT: Positive: Pharynx normal Respiratory/Lung Sounds: Positive: Clear to Auscultation, Breath Sounds Present Cardiovascular: Positive: Normal, RRR Musculoskeletal: Positive: Other - good pulses, pos SLR, tenderness lower back, Neurological: Positive: Normal, Babinski Bilateral - normal Psychiatric: Positive: Normal Diagnostics - Vital Signs Vital Signs Temp Pulse Resp BP Pulse Ox 12/10/18 15:16 18 12/10/18 13:17 98.5 F 86 16 140/102 98 - Laboratory Lab Statement: Any lab studies that have been ordered have been reviewed, and results considered in the medical decision making process. - Radiology back Radiology Interpretation Completed By: Radiologist Summary of Radiographic Findings: IMPRESSION: At L4-L5 there is broad-based protrusion with flattening of the thecal sac. There is left posterior lateral osteophyte with likely protrusion which may impinge upon. the left exiting nerve root at this level. The remainder of the lumbar spine is otherwise. unremarkable. Re-Evaluation - Re-Evaluation First Eval Re-Evaluation Time: 16:05 Change: Improved Comment: back better Back Pain Course/Dx - Course Course Of Treatment: 23 year old female presents with back pain for the past week. She has a history of back pain. She states the pain is become more intense. She has been having constipation which has been increasing the pain. no loss of bowel or bladder. No saddle anesthesia. No fevers. Takes gabapentin hydrocodone and amitriptyline for the pain. She's been taking the medication without relief. able to ambulate. no weakness. on exam tenderness lower back, pos SLR. CT shows no fracture. discussed giving steriod and patient has said has in past with no relief. already on pain meds. discussed constipation is likely leading to increase pain. patient understand and agrees with plan. - Diagnoses Differential Diagnosis/HQI/PQRI: Positive: Fracture, Strain, Sprain Provider Diagnoses: Back pain Discharge - Sign-Out/Discharge Documenting (check all that apply): Patient Departure Patient Received Moderate/Deep Sedation with Procedure: No - Discharge Plan Condition: Good Disposition: HOME Prescriptions: Docusate CAP* [Colace Cap*] 100 mg PO BID #30 cap Patient Education Materials: Back Pain (ED) Referrals: Fannie Beth MD [Primary Care Provider] - Additional Instructions: continue pain medication as prescribed take colace twice a day follow up with primary Return to ED if develop any new or worsening symptoms - Billing Disposition and Condition Condition: GOOD Disposition: Home
[2018-12-10 16:48] VITALS: BP 115/85
== END 2018-12-10 16:47 | disposition home or self-care (01) ==
LOC: ED 13:15
DX: M51.26 Other intervertebral disc displacement, lumbar region (principal); K59.00 Constipation, unspecified; Z86.718 Personal history of other venous thrombosis and embolism; Z79.01 Long term (current) use of anticoagulants; J45.909 Unspecified asthma, uncomplicated; Z88.8 Allergy status to other drugs, medicaments and biological substances; F17.210 Nicotine dependence, cigarettes, uncomplicated
CPT/HCPCS: 72131; 96372; 99282; J2270

== ENCOUNTER 2019-03-18 15:28 | Emergency (ER) | payer BC ==
[2019-03-18 15:56] LABS: ABS Basophils 0.1 10^3/ul (0-0.2); ABS Eosinophils 0.1 10^3/ul (0-0.6); ABS Lymphocytes 2.3 10^3/ul (1.0-4.8); ABS Monocytes 0.5 10^3/ul (0-0.8); ABS Neutrophils 6.4 10^3/ul (1.5-7.7); Eosinophil % 1.4 %; Hematocrit 44 % (35-47); Hemoglobin 15.6 g/dL (12.0-16.0); Lymphocyte % 24.3 %; Mean Corpuscular HGB Conc 35 g/dL (31-36); Mean Corpuscular Hemoglobin 32 pg (27-31); Mean Corpuscular Volume 92 fL (80-97); Mean Platelet Volume 7.7 fL (7.4-10.4); Nucleated Red Blood Cells % 0.1; Platelet Count 307 10^3/uL (150-450); Red Blood Count 4.85 10^6 /uL (3.70-4.87); Red Cell Distribution Width 12 % (10-15); White Blood Count 9.5 10^3/uL (3.5-10.8)
[2019-03-18 16:02] LABS: INR 1.05 (0.82-1.09)
[2019-03-18 16:20] LABS: Albumin/Globulin Ratio 1.3 (1-3); BUN/Creatinine Ratio 13.4 (8-20); Calcium 9.3 mg/dL (8.6-10.3); EGFR African American 129.8 (>60); EGFR Non-African American 107.2 (>60); Globulin 3.2 g/dL (2-4); Potassium 3.7 mmol/L (3.5-5.0); Total Bilirubin 0.6 mg/dL (0.2-1.0); Total Protein 7.2 g/dL (6.4-8.9)
--- OUTSIDE RECORDS SUMMARY | 2019-03-18 16:26 | XMS REPORT | Continuity of Care Document ---
:1995 External Reference #:[id number] Author Name Yamilka Collins M.D. (transmitted by agent of provider Alicia Pantoja) Address [address], [place] [address] Care Team Providers Name Role Phone Fannie Beth M.D. - Family Medicine Care Team Information Director Internal Communications Scotty Mcdermott DO - Interventional Care Team Information Director Internal Communications [phone] Pain Medicine Problems Active Problems Provider Date Degeneration of lumbar intervertebral Meng Gilbert MD Onset: 05/15/2018 disc Low back pain Meng Gilbert MD Onset: 05/15/2018 Pain in axilla Meng Gilbert MD Onset: 05/15/2018 Tobacco user Meng Gilbert MD Onset: 05/15/2018 Insomnia Meng Gilbert MD Onset: 05/15/2018 Morbid obesity Kevin Carpenter M.D.,FACP Onset: 08/07/2018 Social History Type Date Description Comments Sex Unknown ETOH Use Denies alcohol use Tobacco Use Start: Unknown Light tobacco smoker (10 or fewer cigarettes/day) Recreational Drug Use Denies Drug Use Smoking Status Reviewed: 03/18/19 Light tobacco smoker (10 or fewer cigarettes/day) Allergies, Adverse Reactions, Alerts Active Allergies Reaction Severity Comments Date Phentermine 05/15/2018 Medications Active Medications SIG Qnty Indications Ordering Date Provider Amlodipine Besylate 1 by mouth every 30tabs I10 Fannie Beth MD 03/16/2019 5mg day Tablets Tramadol HCL 1 by mouth every 90tabs G89.4 Fannie Beth MD 03/16/2019 50mg 6-8 hours as Tablets needed for pain Famotidine 1 by mouth 60tabs R12 Fannie Beth MD 03/16/2019 20mg Tablets 1-2x/day as needed for heartburn Albuterol Sulfate HFA 2 inhalation every 17gm Fannie Beth MD 03/16/2019 4 hours as needed 108(90Base) mcg/Act for wheezing Aerosol Methocarbamol one po bid prn for 60tabs M54.5 Fannie Beth MD 12/19/2018 750mg spasms Tablets Amitriptyline HCL 2 by mouth at 60tabs M54.16 Fannie Beth MD 06/24/2018 25mg bedtime Tablets Gabapentin takes prn---qid Fannie Beth 400mg M.D. Capsules Mirena (52 MG) Unknown 20mcg/24HR IUD Tizanidine HCL 1-2 tabs by mouth 60tabs M54.5 Fannie Beth MD 2mg as needed at night Tablets for spasms History Medications Hydrocodone-Acetaminophen 1 tab by 90tabs Fannie Beth, 01/02/2019 - 10-325mg Tablets mouth every 6 03/03/2019 hours as needed for pain, mdd 3 Hydrocodone-Acetaminophen 1 tab by 45tabs Fannie Beth, 01/02/2019 - 10-325mg Tablets mouth every 6 03/03/2019 hours as needed for pain, mdd 3 Nucynta 1 every 8 90tabs M51.36 Fannie Beth 12/19/2018 - 50mg Tablets hours as 03/16/2019 needed for pain Tramadol HCL 1 by mouth 90tabs Fannie Beth, 12/15/2018 - 50mg Tablets every 6 hours 03/03/2019 as needed pain Gabapentin Take 1 120caps Fannie Beth, 10/31/2018 - 400mg Capsules Capsule By 03/03/2019 Mouth Four Times Daily Nicoderm CQ one every 24 28units F17.21 Fnanie Beth, 10/31/2018 - 7mg/24HR Patches 24HR hours 0 03/16/2019 Tramadol HCL 1 by mouth 90tabs G89.4 Fannie Beth 10/02/2018 - 50mg Tablets every 6-8 10/31/2018 hours as needed for pain Cephalexin one by mouth 21tabs Fannie Beth, 10/02/2018 - 500mg Tablets three times a MD 03/16/2019 day x 7 days, for skin boils Medications Administered in Office Medication SIG Qnty Indications Ordering Provider Date Toradol Injection 15MG Fannie Beth MD 12/19/2018 Injection Immunizations CPT Code Status Date Vaccine Lot # [id number] Given 03/16/2019 Influenza Virus Vaccine, Quadrivalent ([id number]), [id number] Derived From Cell Vital Signs Date Vital Result Comment 03/18/2019 1:57pm Height 60 inches 5'0" Weight 276.00 lb Heart Rate 77 /min BP Systolic Sitting 138 mmHg BP Diastolic Sitting 87 mmHg BMI (Body Mass Index) 53.9 kg/m2 03/16/2019 2:10pm Height 60 inches 5'0" Weight 276.00 lb Heart Rate 91 /min BP Systolic Sitting 147 mmHg BP Diastolic Sitting 98 mmHg O2 % BldC Oximetry 97 % BMI (Body Mass Index) 53.9 kg/m2 Results Test Date Facility Test Result H/L Range Note Laboratory test 03/16/2019 [facility] TSH (Thyroid 0.95 Normal 0.34-5.[address] [place]) mcIU/[place] [address] [phone] Basic Metabolic 03/16/2019 [facility] Sodium 141 mmol/L Normal 135-[address] [place] [address] [phone] Potassium 4.6 mmol/L Normal 3.5-5.0 Chloride 108 mmol/L Normal 101-111 Co2 Carbon Dioxide 27 mmol/L Normal 22-32 Anion Gap 6 mmol/L Normal 2-11 Glucose 80 mg/dL Normal 70-100 Blood Urea Nitrogen 10 mg/dL Normal 6-24 Creatinine 0.67 mg/dL Normal 0.51-0.95 BUN/Creatinine Ratio 14.9 Normal 8-20 Calcium 9.6 mg/dL Normal 8.6-10.3 Egfr Non- 107.2 >60 Egfr 129.8 >60 1 Laboratory test 02/17/2019 [facility] TSH (Thyroid <pending> finding [address]) [place] [address] [phone] Hemoglobin A1c (Glyco HGB) <pending> Drug Abuse 20 12/31/2018 [facility] Urine Amphetamine Negative ng/mL [address] [place] [address] [phone] Urine Barbiturates Negative ng/mL 3 Urine Benzodiazepines Negative ng/mL 4 Urine Cocaine Negative ng/mL 5 Urine Phencyclidine Negative ng/mL Cutoff: 25 Urine Tetrahydrocannabinol Negative ng/mL Cutoff: 50 6 Creatinine, Urine 70.3 mg/dL Specific [place] 1.007 pH 6.6 Oxidants Negative 7 Adulterants Comment Normal Codeine, Ur Not Detected ng/mL Cutoff: 25 8 Ixvrjwm-1-wrqu-glucuronide, Ur Not Detected ng/mL 9 Morphine, Ur Not Detected ng/mL Cutoff: 25 10 Ijwzzdwf-7-yzex-glucuronide, U Not Detected ng/mL 11 6-monoacetylmorphine, Ur Not Detected ng/mL Cutoff: 25 12 Hydrocodone, Ur Present ng/mL Abnormal Cutoff: 25 13 Norhydrocodone, Ur Present ng/mL Abnormal Cutoff: 25 14 Dihydrocodeine, Ur Present ng/mL Abnormal Cutoff: 25 15 Hydromorphone, Ur Present ng/mL Abnormal Cutoff: 25 16 Ewlhnmrjqxwuz5obynvtmxatzgluj Present ng/mL Abnormal 17 Oxycodone, Ur Not Detected ng/mL Cutoff: 25 18 Noroxycodone, Ur Not Detected ng/mL Cutoff: 25 19 Oxymorphone, Ur Not Detected ng/mL Cutoff: 25 20 Munvpmwreuq-7-wrot-glucuronide Not Detected ng/mL 21 Noroxymorphone, Ur Not Detected ng/mL Cutoff: 25 22 Fentanyl, Ur Not Detected ng/mL Cutoff: 2 23 Norfentanyl, Ur Not Detected ng/mL Cutoff: 2 24 Meperidine, Ur Not Detected ng/mL Cutoff: 25 25 Normeperidine, Ur Not Detected ng/mL Cutoff: 25 26 Naloxone, Ur Not Detected ng/mL Cutoff: 25 27 Dhbkzuql-1-uohq-glucuronide, U Not Detected ng/mL 28 Methadone, Ur Not Detected ng/mL Cutoff: 25 29 Eddp, Ur Not Detected ng/mL Cutoff: 25 30 Propoxyphene, Ur Not Detected ng/mL Cutoff: 25 31 Norpropoxyphene, Ur Not Detected ng/mL Cutoff: 25 32 Tramadol, Ur Present ng/mL Abnormal Cutoff: 25 33 O-desmethyltramadol, Ur Present ng/mL Abnormal Cutoff: 25 34 Tapentadol, Ur Not Detected ng/mL Cutoff: 25 35 N-desmethyltapentadol, Ur Not Detected ng/mL Cutoff: 50 36 Dsuqfzqdnq-keql-rpgevphspwz, U Not Detected ng/mL 37 Buprenorphine, Ur Not Detected ng/mL Cutoff: 5 38 Norbuprenorphine, Ur Not Detected ng/mL Cutoff: 5 39 Norbuprenorphine glucuronide Not Detected ng/mL Cutoff: 20 40 Opioid Interpretation See Comment 41 Drug Abuse 12/19/2018 [facility] Urine Amphetamine Negative ng/ mL 42, 43 [address] [place] [address] [phone] Urine Barbiturates Negative ng/mL 44 Urine Benzodiazepines Negative ng/mL 45 Urine Cocaine Negative ng/mL 46 Urine Phencyclidine Negative ng/mL Cutoff: 25 Urine Tetrahydrocannabinol Negative ng/mL Cutoff: 50 47 Creatinine, Urine 19.9 mg/dL Specific [place] 1.002 pH 7.1 Oxidants Negative 48 Adulterants Comment See Comment 49 Codeine, Ur Not Detected ng/mL Cutoff: 25 50 Rioncsm-1-sxhc-glucuronide, Ur Not Detected ng/mL 51 Morphine, Ur Not Detected ng/mL Cutoff: 25 52 Nanwsmmd-9-pqbq-glucuronide, U Present ng/mL Abnormal 53 6-monoacetylmorphine, Ur Not Detected ng/mL Cutoff: 25 54 Hydrocodone, Ur Not Detected ng/mL Cutoff: 25 55 Norhydrocodone, Ur Not Detected ng/mL Cutoff: 25 56 Dihydrocodeine, Ur Not Detected ng/mL Cutoff: 25 57 Hydromorphone, Ur Not Detected ng/mL Cutoff: 25 58 Gfcstavcaafsq5lpgzijtcabpgzxv Not Detected ng/mL 59 Oxycodone, Ur Not Detected ng/mL Cutoff: 25 60 Noroxycodone, Ur Not Detected ng/mL Cutoff: 25 61 Oxymorphone, Ur Not Detected ng/mL Cutoff: 25 62 Qxoibjothjr-7-soap-glucuronide Not Detected ng/mL 63 Noroxymorphone, Ur Not Detected ng/mL Cutoff: 25 64 Fentanyl, Ur Not Detected ng/mL Cutoff: 2 65 Norfentanyl, Ur Not Detected ng/mL Cutoff: 2 66 Meperidine, Ur Not Detected ng/mL Cutoff: 25 67 Normeperidine, Ur Not Detected ng/mL Cutoff: 25 68 Naloxone, Ur Not Detected ng/mL Cutoff: 25 69 Sqpwvome-2-bokb-glucuronide, U Not Detected ng/mL 70 Methadone, Ur Not Detected ng/mL Cutoff: 25 71 Eddp, Ur Not Detected ng/mL Cutoff: 25 72 Propoxyphene, Ur Not Detected ng/mL Cutoff: 25 73 Norpropoxyphene, Ur Not Detected ng/mL Cutoff: 25 74 Tramadol, Ur Present ng/mL Abnormal Cutoff: 25 75 O-desmethyltramadol, Ur Present ng/mL Abnormal Cutoff: 25 76 Tapentadol, Ur Not Detected ng/mL Cutoff: 25 77 N-desmethyltapentadol, Ur Not Detected ng/mL Cutoff: 50 78 Lancgrtlkv-nmsf-ahndeckrvpl, U Not Detected ng/mL 79 Buprenorphine, Ur Not Detected ng/mL Cutoff: 5 80 Norbuprenorphine, Ur Not Detected ng/mL Cutoff: 5 81 Norbuprenorphine glucuronide Not Detected ng/mL Cutoff: 20 82 Opioid Interpretation See Comment 83 GC/Chlamydia 10/02/2018 [facility] Chlamydia Negative Negative Amplified Rna [address] [place] [address] [phone] Neisseria gonorrhoeae (GC) Rna Negative Negative Laboratory test 10/02/2018 [facility] Cytology SEE RESULT BELOW 84 [address] [employer] [place] [address] [phone] 1 Because ethnic data is not always readily available, this report includes an eGFR for both -Americans and non- Americans. The National Kidney Disease Education Program (NKDEP) does not endorse the use of the MDRD equation for patients that are not between the ages of 18 and 70, are , have extremes of body size, muscle mass, or nutritional status, or are non- or non-. According to the National Kidney Foundation, irrespective of diagnosis, the stage of the disease is based on the level of kidney function: Stage Description GFR(mL/min/1.73 m(2)) 1 Kidney damage with normal or decreased GFR 90 2 Kidney damage with mild decrease in GFR 60-89 3 Moderate decrease in GFR 30-59 4 Severe decrease in GFR 15-29 5 Kidney failure <15 (or dialysis) 2 REFERENCE VALUE Cutoff: 500 3 REFERENCE VALUE Cutoff: 200 4 REFERENCE VALUE Cutoff: 100 5 REFERENCE VALUE Cutoff: 150 6 ADDITIONAL INFORMATION This report is intended for use in clinical monitoring or management of patients. It is not intended for use in employment-related testing. Test Performed by: [facility] [address] [place] [address] 7 REFERENCE VALUE Cutoff: 200 mg/L 8 Tylenol 3 9 Metabolite of codeine REFERENCE VALUE Cutoff: 100 10 Isabela Sun, Contin; Also a minor metabolite (10%) of codeine and can be seen in low concentrations (<2,000 ng/mL) with poppy seed ingestion. 11 Metabolite of morphine REFERENCE VALUE Cutoff: 100 12 Metabolite of heroin 13 Lortab, [place], Vicodin; Also a very minor metabolite of codeine and impurity (<1%) of oxycodone. 14 Metabolite of hydrocodone 15 Metabolite of hydrocodone 16 Dilaudid, Exalgo; Also a metabolite of hydrocodone and a minor (<5%) metabolite of morphine. 17 Metabolite of hydromorphone REFERENCE VALUE Cutoff: 100 18 Endocet, Percocet, Oxycontin 19 Metabolite of oxycodone 20 Numorphan, Opana; Also a metabolite of oxycodone. 21 Metabolite of oxymorphone REFERENCE VALUE Cutoff: 100 22 Metabolite of oxymorphone 23 Actiq, Duragesic, Fentora 24 Metabolite of fentanyl 25 Demerol 26 Metabolite of meperidine 27 Narcan 28 Metabolite of naloxone REFERENCE VALUE Cutoff: 100 29 Dolophine 30 Metabolite of methadone 31 Darvon, Darvocet 32 Metabolite of propoxyphene 33 Tradol, Ultram, Ultracet 34 Metabolite of tramadol 35 Nucynta 36 Metabolite of tapentadol 37 Metabolite of tapentadol REFERENCE VALUE Cutoff: 100 38 Buprenex, Suboxone 39 Metabolite of buprenorphine 40 Metabolite of buprenorphine 41 Test detected the presence of hydrocodone and several of its metabolites. Suspect use of hydrocodone or possibly hydrocodone and hydromorphone within the past three days. Test detected the presence of tramadol and its metabolite (O-desmethyltramadol). Suspect use of tramadol within the past three days. ADDITIONAL INFORMATION This test was developed and its performance characteristics determined by [facility] in a manner consistent with CLIA requirements. This test has not been cleared or approved by the U.S. Food and Drug Administration. 42 [id number] 43 REFERENCE VALUE Cutoff: 500 44 REFERENCE VALUE Cutoff: 200 45 REFERENCE VALUE Cutoff: 100 46 REFERENCE VALUE Cutoff: 150 47 ADDITIONAL INFORMATION This report is intended for use in clinical monitoring or management of patients. It is not intended for use in employment-related testing. Test Performed by: [facility] [employer] [facility] [address] [place] [address] 48 REFERENCE VALUE Cutoff: 200 mg/L 49 RESULT: Suspect diluted specimen. 50 Tylenol 3 51 Metabolite of codeine REFERENCE VALUE Cutoff: 100 52 Avinza, Isabela, MS Contin; Also a minor metabolite (10%) of codeine and can be seen in low concentrations (<2,000 ng/mL) with poppy seed ingestion. 53 Metabolite of morphine REFERENCE VALUE Cutoff: 100 54 Metabolite of heroin 55 Lortab, [place], Vicodin; Also a very minor metabolite of codeine and impurity (<1%) of oxycodone. 56 Metabolite of hydrocodone 57 Metabolite of hydrocodone 58 Dilaudid, Exalgo; Also a metabolite of hydrocodone and a minor (<5%) metabolite of morphine. 59 Metabolite of hydromorphone REFERENCE VALUE Cutoff: 100 60 Endocet, Percocet, Oxycontin 61 Metabolite of oxycodone 62 Numorphan, Opana; Also a metabolite of oxycodone. 63 Metabolite of oxymorphone REFERENCE VALUE Cutoff: 100 64 Metabolite of oxymorphone 65 Actiq, Duragesic, Fentora 66 Metabolite of fentanyl 67 Demerol 68 Metabolite of meperidine 69 Narcan 70 Metabolite of naloxone REFERENCE VALUE Cutoff: 100 71 Dolophine 72 Metabolite of methadone 73 Darvon, Darvocet 74 Metabolite of propoxyphene 75 Tradol, Ultram, Ultracet 76 Metabolite of tramadol 77 Nucynta 78 Metabolite of tapentadol 79 Metabolite of tapentadol REFERENCE VALUE Cutoff: 100 80 Buprenex, Suboxone 81 Metabolite of buprenorphine 82 Metabolite of buprenorphine 83 Test detected the presence of fhlmmarw-4-iggq-glucuronide (metabolite of morphine) only. Suspect use of morphine within the past three days. These results could also be suggestive of heroin use. Low levels of morphine can also be seen following poppy seed ingestion. Test detected the presence of tramadol and its metabolite (O-desmethyltramadol). Suspect use of tramadol within the past three days. ADDITIONAL INFORMATION This test was developed and its performance characteristics determined by [facility] in a manner consistent with CLIA requirements. This test has not been cleared or approved by the U.S. Food and Drug Administration. 84 SEE RESULT BELOW Name: SHILPA KIM : [address]: Fannie Beth MD Acct: [id number] Unit: [id number] AGE: 23 Location: [facility] Re10/02/18 SEX: F Status: REG REF SPEC: [id number] RENÉE: 10/02/18-[address]: Fannie Beth MD REQ: [id number] RECD: 10/03/18 STATUS: SOUT _ ORDERED: TP IMAGE ANALYS COMMENTS: NO TRACKING Negative for Intraepithelial lesion or Malignancy A. Ectocervical/Endocervical Specimen Adequacy: Satisfactory of evaluation Transformation zone component not identified Patient Information: HPV: Thin Layer Pap Test w/reflex to high risk HPV RNA testing when ASCUS Actual Specimen Date: 10/02/18 LMP If Unknown: 2014- Mirena IUD ?: N Post Menopausal?: N Signed by and Reported on: CANDELARIO Whitaker(ASCP) 1540 This Pap test was evaluated with the assistance of the [employer] Test Imaging System. Due to cytologic findings at the director internal communications microscope, comprehensive manual rescreening by a [place] Cutting Machine Operator may be required. The Pap Smear is a screening test designed to aid in the detection of premalignant and malignant conditions of the uterine cervix. It is not a diagnostic procedure and should not be used as the sole means of detecting cervical cancer. Both false- positive and false- negative reports do occur. Depending on your risk status, a Pap smear should be obtained and evaluated every 1-3 years. END OF REPORT DEPARTMENT OF PATHOLOGY, [address] [place] [address] Nasir Tovar M.D. Director [facility] # [id number] Procedures Date Code Description Status 03/18/2019 25016 EKG Tracing & Interpretation Completed 12/19/2018 18227 Admin Of Inj Completed Medical Devices Description No Information Available Encounters Type Date Location Provider Dx Diagnosis Office Visit 12/31/2018 John Beth MD G89.4 Chronic pain 4:00p Medicine - Ccmob syndrome R03.0 Elevated blood-pressure reading, w/o diagnosis of htn E66.9 Obesity, unspecified Office Visit 12/19/2018 1:00p John Beth, M51.36 Other intervertebral Medicine - MD disc degeneration, Ccmob lumbar region M54.5 Low back pain Office Visit 12/15/2018 2:20p [facility] Internal Fannie Beth, M51.36 Other intervertebral Medicine - MD disc degeneration, Ccmob lumbar region L02.212 Cutaneous abscess of back [any part, except buttock] F17.210 Nicotine dependence, cigarettes, uncomplicated R03.0 Elevated blood-pressure reading, w/o diagnosis of htn Office Visit 10/31/2018 4:00p [facility] Internal Fannie Beth MD G89.4 Chronic pain Medicine - Ccmob syndrome M51.36 Other intervertebral disc degeneration, lumbar region M54.16 Radiculopathy, lumbar region E66.9 Obesity, unspecified F17.210 Nicotine dependence, cigarettes, uncomplicated Office Visit 10/02/2018 11:20a [facility] Internal Fannie Beth MD Z12.4 Encounter for Medicine - Ccmob screening for malignant neoplasm of cervix Z11.3 Encntr screen for infections w sexl mode of transmiss G89.4 Chronic pain syndrome Assessments Date Code Description Provider 03/18/2019 R07.9 Chest pain, unspecified Yamilka Collins M.D. 03/16/2019 I10 Essential (primary) hypertension Fannie Beth MD 03/16/2019 G89.4 Chronic pain syndrome Fannie Beth MD 03/16/2019 Z23 Encounter for immunization Fannie Beth MD 03/16/2019 L01.1 Impetiginization of other dermatoses Fannie Beth MD 03/16/2019 F17.210 Nicotine dependence, cigarettes, Fannie Beth MD uncomplicated 03/16/2019 R12 Heartburn Fannie Beth MD 12/31/2018 G89.4 Chronic pain syndrome Fannie Beth MD 12/31/2018 R03.0 Elevated blood-pressure reading, without Fannie Beth MD diagnosis of hypert 12/31/2018 E66.9 Obesity, unspecified Fannie Beth MD 12/19/2018 M51.36 Other intervertebral disc degeneration, Fannie Beth MD lumbar region 12/19/2018 M54.5 Low back pain Fannie Beth MD 12/15/2018 M51.36 Other intervertebral disc degeneration, Fannie Beth MD lumbar region 12/15/2018 L02.212 Cutaneous abscess of back [any part, except Fannie Beth MD buttock] 12/15/2018 F17.210 Nicotine dependence, cigarettes, Fannie Beth MD uncomplicated 12/15/2018 R03.0 Elevated blood-pressure reading, without Fannie Beth MD diagnosis of hypert 10/31/2018 G89.4 Chronic pain syndrome Fannie Beth MD 10/31/2018 M51.36 Other intervertebral disc degeneration, Fannie Beth MD lumbar region 10/31/2018 M54.16 Radiculopathy, lumbar region Fannie Beth MD 10/31/2018 E66.9 Obesity, unspecified Fannie Beth MD 10/31/2018 F17.210 Nicotine dependence, cigarettes, Fannie Beth MD uncomplicated 10/02/2018 Z12.4 Encounter for screening for malignant Fannie Beth MD neoplasm of cervix 10/02/2018 Z11.3 Encounter for screening for infections with a Fannie Beth MD predominantly 10/02/2018 G89.4 Chronic pain syndrome Fannie Beth MD Plan of Treatment Future Appointment(s):04/20/2019 11:40 am - [facility] Yamilka Collins M.D.R07.9 Chest pain, unspecified Functional Status Description No Information Available Mental Status Description No Information Available Referrals Refer to Dr Reason for Referral Status Appt Date Farzana Warren MD pt with spontaneous scabs over skin Sent [address], [place] [id number] [phone] [facility] pt would benefit from medically Sent supervised weight loss, has elevated BP and chronic back pain Called referral office, pt has to check insurance and will call back to schedule 01/15 [address] [facility] [place], [place] [id number] [phone] [facility] pt with chronic pain due to DDD and Sent osteophytes impinging on nerve roots. [address] [address] [address] [facility] [address] [phone] Rod Alexander MD pt with known lumbar DDD and possible osteophyte Sent impinging on nerve root, now with worsening pain [address] [place] [address] [phone] Rod Alexander MD pt with chronic low back pain, now worsening. Sent Recent CT shows broad based ge L4-L5 disc bulge impinging on thecal sac and osteophyte possible impinging on nerve root Called referral office, pt has not had an appt since September 2018-01/07/19 [address] [place] [address] [phone] [facility] Obese patient seeking to improve her Sent eating habits to get to a healthier BMI, to aid in pain management and potential future . Called referral office, pt has to check insurance and will call back to schedule 01/15 [address] [facility] [address] [facility] [address] [place] [address] [phone]
--- OUTSIDE RECORDS SUMMARY | 2019-03-18 16:26 | XMS REPORT | Continuity of Care Document ---
:1995 External Reference #:[id number] Author Name Fannie Beth MD (transmitted by agent of provider April Menezes) Address [address], [place] [address] Care Team Providers Name Role Phone Fannie Beth M.D. - Family Medicine Care Team Information Data Steward Scotty Mcdermott DO - Interventional Care Team Information Data Steward Pain Medicine Problems Active Problems Provider Date [...] Use Denies Drug Use Smoking Status Reviewed: 03/16/19 Light tobacco smoker (10 or fewer cigarettes/day) Allergies, Adverse Reactions, Alerts Active Allergies Reaction Severity Comments Date Phentermine 05/15/2018 Medications Active Medications SIG Qnty Indications Ordering Date Provider Amlodipine Besylate 1 by mouth every 30tabs I10 Fannie Beth MD 03/16/2019 5mg day Tablets Tramadol HCL 1 by mouth every 90tabs G89.4 Fannie Beth MD 03/16/2019 50mg Tablets 6-8 hours as needed for pain Famotidine 1 by mouth 60tabs R12 Fannie Beth MD 03/16/2019 20mg Tablets 1-2x/day as needed for heartburn Methocarbamol one po bid prn 60tabs M54.5 Fannie Beth MD 12/19/2018 750mg for spasms Tablets Amitriptyline HCL 2 by mouth at 60tabs M54.16 Fannie Beth MD 06/24/2018 25mg bedtime Tablets Tizanidine HCL 1-2 tabs by mouth 60tabs M54.5 Fannie Beth MD 2mg as needed at Tablets night for spasms Mirena (52 MG) Unknown 20mcg/24HR IUD Gabapentin takes prn---qid Fannie Beth 400mg Capsules M.D. History Medications Hydrocodone-Acetaminophen 1 tab by 90tabs Fannie Beth, 01/02/2019 - 10-325mg Tablets mouth every 6 MD 03/03/2019 hours as needed for pain, mdd 3 Hydrocodone-Acetaminophen 1 tab by 45tabs Fannie Beth, 01/02/2019 - 10-325mg Tablets mouth every 6 03/03/2019 hours as needed for pain, mdd 3 Nucynta 1 every 8 90tabs M51.36 Fannie Beth, 12/19/2018 - 50mg Tablets hours as 03/16/2019 needed for pain Tramadol HCL 1 by mouth 90tabs Fannie Beth, 12/15/2018 - 50mg Tablets every 6 hours MD 03/03/2019 as needed pain Gabapentin Take 1 120caps Fannie Beth, 10/31/2018 - 400mg Capsules Capsule By 03/03/2019 Mouth Four Times Daily Nicoderm CQ one every 24 28units F17.21 Fannie Beth, 10/31/2018 - 7mg/24HR Patches 24HR hours 0 03/16/2019 Tramadol HCL 1 by mouth 90tabs G89.4 Fannie Beth, 10/02/2018 - 50mg Tablets every 6-8 10/31/2018 hours as needed for pain Cephalexin one by mouth 21tabs Fannie Beth, 10/02/2018 - 500mg Tablets three times a 03/16/2019 day x 7 days, for skin boils Medications Administered in Office Medication SIG Qnty Indications Ordering Provider Date Toradol Injection 15MG Fannie Beth MD 12/19/2018 Injection Immunizations CPT Code Status Date Vaccine Lot # [id number] Given 03/16/2019 Influenza Virus Vaccine, Quadrivalent ([id number]), [id number] Derived From Cell Vital Signs Date Vital Result Comment 03/16/2019 2:10pm Height 60 inches 5'0" Weight 276.00 lb Heart Rate 91 /min BP Systolic Sitting 147 mmHg BP Diastolic Sitting 98 mmHg O2 % BldC Oximetry 97 % BMI (Body Mass Index) 53.9 kg/m2 12/31/2018 3:56pm Height 60 inches 5'0" Weight 282.00 lb Heart Rate 80 /min BP Systolic Sitting 159 mmHg R forearm BP Diastolic Sitting 84 mmHg R forearm O2 % BldC Oximetry 97 % BMI (Body Mass Index) 55.1 kg/m2 Results Test Date Facility Test Result H/L Range Note Laboratory test 02/17/2019 [facility] TSH (Thyroid <pending> finding [address]) [place] [address] [phone] Hemoglobin A1c (Glyco HGB) <pending> Drug Abuse 20 12/31/2018 [facility] Urine Amphetamine Negative ng/mL [address] [place] [address] [phone] Urine Barbiturates Negative ng/mL 2 Urine Benzodiazepines Negative ng/mL 3 Urine Cocaine Negative ng/mL 4 Urine Phencyclidine Negative ng/mL Cutoff: 25 Urine Tetrahydrocannabinol Negative ng/mL Cutoff: 50 5 Creatinine, Urine 70.3 mg/dL Specific [place] 1.007 pH 6.6 Oxidants Negative 6 Adulterants Comment Normal Codeine, Ur Not Detected ng/mL Cutoff: 25 7 Jnrouay-8-kxgw-glucuronide, Ur Not Detected ng/mL 8 Morphine, Ur Not Detected ng/mL Cutoff: 25 9 Vyhgdlgg-4-ogmj-glucuronide, U Not Detected ng/mL 10 6-monoacetylmorphine, Ur Not Detected ng/mL Cutoff: 25 11 Hydrocodone, Ur Present ng/mL Abnormal Cutoff: 25 12 Norhydrocodone, Ur Present ng/mL Abnormal Cutoff: 25 13 Dihydrocodeine, Ur Present ng/mL Abnormal Cutoff: 25 14 Hydromorphone, Ur Present ng/mL Abnormal Cutoff: 25 15 Szsjzfntluogf5wpiplbxhexcvifh Present ng/mL Abnormal 16 Oxycodone, Ur Not Detected ng/mL Cutoff: 25 17 Noroxycodone, Ur Not Detected ng/mL Cutoff: 25 18 Oxymorphone, Ur Not Detected ng/mL Cutoff: 25 19 Icalmjigfqx-4-zsde-glucuronide Not Detected ng/mL 20 Noroxymorphone, Ur Not Detected ng/mL Cutoff: 25 21 Fentanyl, Ur Not Detected ng/mL Cutoff: 2 22 Norfentanyl, Ur Not Detected ng/mL Cutoff: 2 23 Meperidine, Ur Not Detected ng/mL Cutoff: 25 24 Normeperidine, Ur Not Detected ng/mL Cutoff: 25 25 Naloxone, Ur Not Detected ng/mL Cutoff: 25 26 Blczrgul-6-eatg-glucuronide, U Not Detected ng/mL 27 Methadone, Ur Not Detected ng/mL Cutoff: 25 28 Eddp, Ur Not Detected ng/mL Cutoff: 25 29 Propoxyphene, Ur Not Detected ng/mL Cutoff: 25 30 Norpropoxyphene, Ur Not Detected ng/mL Cutoff: 25 31 Tramadol, Ur Present ng/mL Abnormal Cutoff: 25 32 O-desmethyltramadol, Ur Present ng/mL Abnormal Cutoff: 25 33 Tapentadol, Ur Not Detected ng/mL Cutoff: 25 34 N-desmethyltapentadol, Ur Not Detected ng/mL Cutoff: 50 35 Svzpzcjpvy-xvoq-ucfkeqllwcz, U Not Detected ng/mL 36 Buprenorphine, Ur Not Detected ng/mL Cutoff: 5 37 Norbuprenorphine, Ur Not Detected ng/mL Cutoff: 5 38 Norbuprenorphine glucuronide Not Detected ng/mL Cutoff: 20 39 Opioid Interpretation See Comment 40 Drug Abuse 12/19/2018 [facility] Urine Amphetamine Negative ng/ mL 41, 42 [address] [place] [address] [phone] Urine Barbiturates Negative ng/mL 43 Urine Benzodiazepines Negative ng/mL 44 Urine Cocaine Negative ng/mL 45 Urine Phencyclidine Negative ng/mL Cutoff: 25 Urine Tetrahydrocannabinol Negative ng/mL Cutoff: 50 46 Creatinine, Urine 19.9 mg/dL Specific [place] 1.002 pH 7.1 Oxidants Negative 47 Adulterants Comment See Comment 48 Codeine, Ur Not Detected ng/mL Cutoff: 25 49 Qaenmwm-4-kqlu-glucuronide, Ur Not Detected ng/mL 50 Morphine, Ur Not Detected ng/mL Cutoff: 25 51 Lndtrkcb-3-fdcv-glucuronide, U Present ng/mL Abnormal 52 6-monoacetylmorphine, Ur Not Detected ng/mL Cutoff: 25 53 Hydrocodone, Ur Not Detected ng/mL Cutoff: 25 54 Norhydrocodone, Ur Not Detected ng/mL Cutoff: 25 55 Dihydrocodeine, Ur Not Detected ng/mL Cutoff: 25 56 Hydromorphone, Ur Not Detected ng/mL Cutoff: 25 57 Ufpkdmrsabiia8ckhiuaefymxbikh Not Detected ng/mL 58 Oxycodone, Ur Not Detected ng/mL Cutoff: 25 59 Noroxycodone, Ur Not Detected ng/mL Cutoff: 25 60 Oxymorphone, Ur Not Detected ng/mL Cutoff: 25 61 Cieoytbillh-7-zych-glucuronide Not Detected ng/mL 62 Noroxymorphone, Ur Not Detected ng/mL Cutoff: 25 63 Fentanyl, Ur Not Detected ng/mL Cutoff: 2 64 Norfentanyl, Ur Not Detected ng/mL Cutoff: 2 65 Meperidine, Ur Not Detected ng/mL Cutoff: 25 66 Normeperidine, Ur Not Detected ng/mL Cutoff: 25 67 Naloxone, Ur Not Detected ng/mL Cutoff: 25 68 Zhiobupl-1-rqig-glucuronide, U Not Detected ng/mL 69 Methadone, Ur Not Detected ng/mL Cutoff: 25 70 Eddp, Ur Not Detected ng/mL Cutoff: 25 71 Propoxyphene, Ur Not Detected ng/mL Cutoff: 25 72 Norpropoxyphene, Ur Not Detected ng/mL Cutoff: 25 73 Tramadol, Ur Present ng/mL Abnormal Cutoff: 25 74 O-desmethyltramadol, Ur Present ng/mL Abnormal Cutoff: 25 75 Tapentadol, Ur Not Detected ng/mL Cutoff: 25 76 N-desmethyltapentadol, Ur Not Detected ng/mL Cutoff: 50 77 Gumymewimm-lqps-irtdgejzjpu, U Not Detected ng/mL 78 Buprenorphine, Ur Not Detected ng/mL Cutoff: 5 79 Norbuprenorphine, Ur Not Detected ng/mL Cutoff: 5 80 Norbuprenorphine glucuronide Not Detected ng/mL Cutoff: 20 81 Opioid Interpretation See Comment 82 GC/Chlamydia 10/02/2018 [facility] Chlamydia Negative Negative Amplified Rna [address] [place] [address] [phone] Neisseria gonorrhoeae (GC) Rna Negative Negative Laboratory test 10/02/2018 [facility] Cytology SEE RESULT BELOW 83 [address] [place] [address] [phone] REFERENCE VALUE Cutoff: 500 2 REFERENCE VALUE Cutoff: 200 3 REFERENCE VALUE Cutoff: 100 4 REFERENCE VALUE Cutoff: 150 5 ADDITIONAL INFORMATION This report is intended for use in clinical monitoring or management of patients. It is not intended for use in employment-related testing. Test Performed by: [facility] [address] [place] [address] 6 REFERENCE VALUE Cutoff: 200 mg/L 7 Tylenol 3 8 Metabolite of codeine REFERENCE VALUE Cutoff: 100 9 Isabela Sun, Contin; Also a minor metabolite (10%) of codeine and can be seen in low concentrations (<2,000 ng/mL) with poppy seed ingestion. 10 Metabolite of morphine REFERENCE VALUE Cutoff: 100 11 Metabolite of heroin 12 Lortab, [place], Vicodin; Also a very minor metabolite of [...] buprenorphine 40 Test detected the presence of hydrocodone and several of its metabolites. Suspect use of hydrocodone or possibly hydrocodone and hydromorphone within the past three days. Test detected the presence of tramadol and its metabolite (O-desmethyltramadol). Suspect use of tramadol within the past three days. ADDITIONAL INFORMATION This test was developed and its performance characteristics determined by [facility] in a manner consistent with CLIA requirements. This test has not been cleared or approved by the U.S. Food and Drug Administration. 41 [id number] 42 REFERENCE VALUE Cutoff: 500 43 REFERENCE VALUE Cutoff: 200 44 REFERENCE VALUE Cutoff: 100 45 REFERENCE VALUE Cutoff: 150 46 ADDITIONAL INFORMATION This report is intended for use in clinical monitoring or management of patients. It is not intended for use in employment-related testing. Test Performed by: [facility] [employer] [facility] [address] [place] [address] 47 REFERENCE VALUE Cutoff: 200 mg/L 48 RESULT: Suspect diluted specimen. 49 Tylenol 3 50 Metabolite of codeine REFERENCE VALUE Cutoff: 100 51 Isabela Sun, MS Contin; Also a minor metabolite (10%) of codeine and can be seen in low concentrations (<2,000 ng/mL) with poppy seed ingestion. 52 Metabolite of morphine REFERENCE VALUE Cutoff: 100 53 Metabolite of heroin 54 Lortab, Lincoln, Vicodin; Also a very minor metabolite of codeine and impurity (<1%) of oxycodone. 55 Metabolite of hydrocodone 56 Metabolite of hydrocodone 57 Dilaudid, Exalgo; Also a metabolite of hydrocodone and a minor (<5%) metabolite of morphine. 58 Metabolite of hydromorphone REFERENCE VALUE Cutoff: 100 59 Endocet, Percocet, Oxycontin 60 Metabolite of oxycodone 61 Numorphan, Opana; Also a metabolite of oxycodone. 62 Metabolite of oxymorphone REFERENCE VALUE Cutoff: 100 63 Metabolite of oxymorphone 64 Actiq, Duragesic, Fentora 65 Metabolite of fentanyl 66 Demerol 67 Metabolite of meperidine 68 Narcan 69 Metabolite of naloxone REFERENCE VALUE Cutoff: 100 70 Dolophine 71 Metabolite of methadone 72 Darvon, Darvocet 73 Metabolite of propoxyphene 74 Tradol, Ultram, Ultracet 75 Metabolite of tramadol 76 Nucynta 77 Metabolite of tapentadol 78 Metabolite of tapentadol REFERENCE VALUE Cutoff: 100 79 Buprenex, Suboxone 80 Metabolite of buprenorphine 81 Metabolite of buprenorphine 82 Test detected the presence of vioymztw-0-qlbg-glucuronide (metabolite of morphine) only. Suspect use of [...] its performance characteristics determined by [facility] in a manner consistent with CLIA requirements. This test has not been cleared or approved by the U.S. Food and Drug Administration. 83 SEE RESULT BELOW Name: SHILPA KIM : [address]: Fannie Beth MD Acct: [id number] Unit: [id number] AGE: 23 Location: [facility] Re10/02/18 SEX: F Status: REG REF SPEC: [id number] RENÉE: 10/02/18-[address]: Fannie Beth MD REQ: [id number] RECD: 10/03/18-9298 STATUS: SOUT _ ORDERED: TP IMAGE ANALYS [...] Signed by and Reported on: CANDELARIO Whitaker(ASCP) [id number] This Pap test was evaluated with the assistance of the [employer] Test Imaging System. Due to cytologic findings at the welder tack microscope, comprehensive manual rescreening by a Director Of Home Health Services may be required. The Pap Smear is [...] years. END OF REPORT DEPARTMENT OF PATHOLOGY, [address] [place] [address] Nasir Tovar M.D. Director [facility] # [id number] Procedures Date Code Description Status 12/19/2018 [address] [facility] Completed Medical Devices Description No Information Available Encounters Type Date Location Provider Dx Diagnosis Office Visit 12/31/2018 [facility] Fannie Beth MD G89.4 Chronic pain 4:00p Medicine - Ccmob syndrome R03.0 Elevated blood-pressure reading, w/o diagnosis of htn E66.9 Obesity, unspecified Office Visit 12/19/2018 1:00p [facility] Internal Fannie Beth, M51.36 Other intervertebral Medicine - MD disc degeneration, Ccmob lumbar region M54.5 Low back pain Office Visit 12/15/2018 2:20p [facility] Internal Fannie Beth, M51.36 Other intervertebral Medicine - MD disc degeneration, Ccmob lumbar region L02.212 Cutaneous abscess of back [any part, except buttock] F17.210 Nicotine dependence, cigarettes, uncomplicated R03.0 Elevated blood-pressure reading, w/o diagnosis of htn Office Visit 10/31/2018 4:00p [facility] Internal Fannie Beth MD G89.4 Chronic pain Medicine - Ccmob syndrome M51.36 Other intervertebral disc degeneration, lumbar region M54.16 Radiculopathy, lumbar region E66.9 Obesity, unspecified F17.210 Nicotine dependence, cigarettes, uncomplicated Office Visit 10/02/2018 11:20a [facility] Internal Fannie Beth MD Z12.4 Encounter for Medicine - Ccmob screening for malignant neoplasm of cervix Z11.3 Encntr screen for infections w sexl mode of transmiss G89.4 Chronic pain syndrome Assessments Date Code Description Provider 03/16/2019 I10 Essential (primary) hypertension Fannie Beth MD 03/16/2019 G89.4 Chronic pain syndrome Fannie Beth MD 03/16/2019 Z23 Encounter for immunization Fannie Beth MD 03/16/2019 L01.1 Impetiginization of other dermatoses Fannie Beth MD 03/16/2019 F17.210 Nicotine dependence, cigarettes, uncomplicated Fannie Beth MD 03/16/2019 R12 Heartburn Fannie Beth MD 12/31/2018 G89.4 Chronic pain syndrome Fannie Beth MD 12/31/2018 R03.0 Elevated blood-pressure reading, without diagnosis Fannie Beth MD of hypert 12/31/2018 E66.9 Obesity, unspecified Fannie Beth MD 12/19/2018 M51.36 Other intervertebral disc degeneration, lumbar Fannie Beth MD region 12/19/2018 M54.5 Low back pain Fannie Beth MD 12/15/2018 M51.36 Other intervertebral disc degeneration, lumbar Fannie Beth MD region 12/15/2018 L02.212 Cutaneous abscess of back [any part, except Fannie Beth MD buttock] 12/15/2018 F17.210 Nicotine dependence, cigarettes, uncomplicated Fannie Beth MD 12/15/2018 R03.0 Elevated blood-pressure reading, without diagnosis Fannie Beth MD of hypert 10/31/2018 G89.4 Chronic pain syndrome Fannie Beth MD 10/31/2018 M51.36 Other intervertebral disc degeneration, lumbar Fannie Beth MD region 10/31/2018 M54.16 Radiculopathy, lumbar region Fannie Beth MD 10/31/2018 E66.9 Obesity, unspecified Fannie Beth MD 10/31/2018 F17.210 Nicotine dependence, cigarettes, uncomplicated Fannie Beth MD 10/02/2018 Z12.4 Encounter for screening for malignant neoplasm of Fannie Beth MD cervix 10/02/2018 Z11.3 Encounter for screening for infections with a Fannie Beth MD predominantly 10/02/2018 G89.4 Chronic pain syndrome Fannie Beth MD Plan of Treatment Future Appointment(s):04/20/2019 11:40 am - [facility] Fannie Beth MDI10 Essential (primary) hypertensionNew Medication:Amlodipine Besylate 5 mg - 1 by mouth every dayComments:your blood pressure is too high and you will need to start medication to control it. Please take it every day and return in 1 month for a re-checkFollow up:1 moG89.4 Chronic pain syndromeNew Medication:Tramadol HCL 50 mg - 1 by mouth every 6-8 hours as needed for painComments:I am discontinuing the Nucynta and keeping you on tramadol onlyZ23 Encounter for ckzdqitkntriF27.1 Impetiginization of other dermatosesReferral:Farzana Warren MD, XkgiqlydubzO61.210 Nicotine dependence, cigarettes, uncomplicatedComments:I urge you to continue your efforts to quit smoking.R12 HeartburnNew Medication: Famotidine 20 mg - 1 by mouth 1-2x/day as needed for heartburn Functional Status Description No Information Available Mental Status Description No Information Available Referrals Refer to Reason for Referral Status Appt Date Farzana Warren MD pt with spontaneous scabs over skin Sent [address], [place] [id number] [phone] [facility] pt would benefit from medically Sent supervised weight loss, has elevated BP and chronic back pain Called referral office, pt has to check insurance and will call back to schedule 01/15 [address] [place] [address] [phone] [facility] pt with chronic pain due to DDD and Sent osteophytes impinging on nerve roots. [facility] [address] [address] [facility] [id number] [phone] Rod Alexander MD pt with known lumbar DDD and possible osteophyte Sent impinging on nerve root, now with worsening pain [address] [place] [address] [phone] Rod Alexander MD pt with chronic low back pain, now worsening. Sent Recent CT shows broad based ge L4-L5 disc bulge impinging on thecal sac and osteophyte possible impinging on nerve root Called referral office, pt has not had an appt since September 2018-01/07/19 [address] [place] [address] [phone] [facility] Obese patient seeking to improve her Sent eating habits to get to a healthier BMI, to aid in pain management and potential future . Called referral office, pt has to check insurance and will call back to schedule 01/15 [address] [facility] [address] [place] [address] [phone]
--- NOTE | 2019-03-18 16:33 | ED ---
HPI Chest Pain - HPI Summary HPI Summary: 23 year old F presenting to [facility] [place] complains of chest pain rated 6/10 in severity since waking up yesterday 03/17/19. States she has been seeing her primary care provider, Dr. Beth, for hypertension. Saturday03/16/19, patient was placed on amlodipine 5 mg which she started taking on Saturday03/16/19 evening. Received influenza vaccination on Saturday03/16/19. Saturday03/17/19, patient had straight watery diarrhea and abdominal cramping/soreness. Today , patient woke up with pleuritic chest pain. 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 Spoke with PCP this afternoon, made an appointment for 13:40. Before her appointment, patient developed chest tightness. Had normal EKG done at PCP office. When leaving PCP office, developed increased SOB feeling in chest. Was referred to the ED by PCP. C= States she ate a cheese steak today after which she did not vomit but pain did increase. no back pain. Reports sour taste in mouth. No belching. No hx GERD. States she has been around sick children. Reports head pressure. No sore throat, ear pain, cough, fever. No swelling or cramping in legs. No recent long distance travel. Symptoms aggravated by amlodipine 5 mg. Symptoms alleviated by nothing. Has taken tramadol with minimal relief. Hx DVT in right lower extremity. Not currently taking anticoagulants but has in the past. FHx DVT in mother. Had CT with contrast done before. No adverse reaction to contrast dye. No allergy to seafood. Has Mirena IUD. Doesn't get menstrual cycles. She smokes cigarettes, 1/2 PPD. No alcohol, drugs, marijuana. Patient is unemployed. Patients medication reviewed this visit. - History of Current Complaint Chief Complaint: EDChestPainROMI Time Seen by Provider: 03/18/19 16:25 Hx Obtained From: Patient Hx Last Menstrual Period: Mirena IUD Onset/Duration: Started Days Ago - yesterday 03/17/19, Still Present Timing: Constant Current Severity: Moderate Pain Intensity: 6 Pain Scale Used: 0-10 Numeric Chest Pain Radiates: No Character: Heaviness, Pressure/Squeezing Aggravating Factor(s): Other: - amlodipine 5 mg Alleviating Factor(s): Nothing Associated Signs and Symptoms: Positive: Negative - vomiting, belching, sore throat, ear pain, cough, fever, swelling or cramping in legs, Other: - diarrhea , abdominal cramping/soreness, sour taste in mouth - Allergy/Home Medications Allergies/Adverse Reactions: Allergies Allergy/AdvReac Type Severity Reaction Status Date / Time phentermine AdvReac Hives Verified 02/13/19 10:43 Home Medications: Home Medications Amitriptyline TAB* [Elavil TAB*] 50 mg PO BEDTIME 03/18/19 [History Confirmed ] Amlodipine Besylate [Amlodipine 2.5 mg tab] 5 mg PO DAILY 03/18/19 [History Confirmed 03/18/19] PMH/Surg Hx/FS Hx/Imm Hx Previously Healthy: No Endocrine/Hematology History: Reports: Hx Anticoagulant Therapy Denies: Hx Diabetes Cardiovascular History: Reports: Hx Deep Vein Thrombosis Denies: Hx Hypertension, Hx Pacemaker/ICD Respiratory History: Reports: Hx Asthma - INHALER PRN GI History: Denies: Hx Gastroesophageal Reflux Disease Musculoskeletal History: Reports: Hx Back Problems, Other Musculoskeletal History - Degenerative disc disease, Chronic back pain Sensory History: Denies: Hx Hearing Aid Neurological History: Reports: Other Neuro Impairments/Disorders - Spinal stenosis and chipped, bulging discs in the L-spine. / PAIN CLINIC PT Psychiatric History: Denies: Hx Depression, Hx Panic Disorder - Cancer History Cancer Type, Location and Year: None reported - Surgical History Surgical History: Yes Surgery Procedure, Year, and Place: WISDOM TEETH - Immunization History Date of Tetanus Vaccine: pt states unsure Date of Influenza Vaccine: none Infectious Disease History: No Infectious Disease History: Denies: Traveled Outside the [place] in Last 30 Days - Family History Known Family History: Positive: Hypertension, Diabetes, Other - mother DVT - Social History Occupation: Unemployed Lives: With Family Alcohol Use: None Hx Substance Use: No Substance Use Type: Reports: None Hx Tobacco Use: Yes Smoking Status (MU): Light Every Day Tobacco Smoker Type: Cigarettes Amount Used/How Often: 1 Pack every other day Have You Smoked in the Last Year: Yes Review of Systems Negative: Fever Negative: Sore Throat, Ear Ache Positive: Other - pleuritic chest pain Positive: Shortness Of Breath - intermittent. Negative: Cough Gastrointestinal: Negative - belching Positive: Abdominal Pain, Diarrhea, Other - sour taste in mouth. Negative: Vomiting Musculoskeletal: Negative - swelling or cramping in legs All Other Systems Reviewed And Are Negative: Yes Physical Exam - Summary Physical Exam Summary: Vital Signs Reviewed: Yes A+Ox3, no distress, restinf comfortable, speaking full easy sentences Eyes: Conjunctiva Clear, SAVANNA. EOM intact and full ENT: Hearing grossly normal TM x 2 clear, mmoist, uvula midline, no exudate, no erythema Neck: Positive: Supple Respiratory: Positive: No respiratory distress, No accessory muscle use + CTA throughout no w/r in increased WOB no reproducible pain Cardiovascular: RRR nl s1, s2 no m/r CBT <2 sec abd soft + BS nt/nd no guarding, no distension Musculoskeletal Exam: SPENCE x 4 without difficulty Strength Intact, ROM Intact Neurological: Positive: Alert, + sensation throughout Psychological: Positive: Normal Response To social media marketer Skin: Positive: no rash, no ecchymosis Triage Information Reviewed: Yes Vital Signs On Initial Exam: Initial Vitals Temp Pulse Resp BP Pulse Ox 98.2 F 98 16 154/92 98 03/18/19 15:35 03/18/19 15:35 03/18/19 15:35 03/18/19 15:35 03/18/19 15:35 Vital Signs Reviewed: Yes Procedures - Sedation Patient Received Moderate/Deep Sedation with Procedure: No Diagnostics - Vital Signs Vital Signs Temp Pulse Resp BP Pulse Ox 03/18/19 16:00 100 28 97 03/18/19 15:56 93 19 123/84 98 03/18/19 15:53 99 98 03/18/19 15:35 98.2 F 98 16 154/92 98 - Laboratory Lab Results: Lab Results 03/18/19 03/18/19 03/18/19 Range/Units 15:46 15:46 15:46 WBC 9.5 (3.5-10.8) 10^3/uL RBC 4.85 (3.70-4.87) 10^6 /uL Hgb 15.6 (12.0-16.0) g/dL Hct 44 (35-47) % MCV 92 (80-97) fL MCH 32 H (27-31) pg MCHC 35 (31-36) g/dL RDW 12 (10-15) % Plt Count 307 (150-450) 10^3/uL MPV 7.7 (7.4-10.4) fL Neut % (Auto) 68.0 % Lymph % (Auto) 24.3 % Hartley % (Auto) 5.5 % Eos % (Auto) 1.4 % Baso % (Auto) 0.8 % Absolute Neuts (auto) 6.4 (1.5-7.7) 10^3/ul Absolute Lymphs (auto) 2.3 (1.0-4.8) 10^3/ul Absolute Monos (auto) 0.5 (0-0.8) 10^3/ul Absolute Eos (auto) 0.1 (0-0.6) 10^3/ul Absolute Basos (auto) 0.1 (0-0.2) 10^3/ul Absolute Nucleated RBC 0.0 10^3/ul Nucleated RBC % 0.1 INR (Anticoag Therapy) 1.05 (0.82-1.09) Sodium 139 (135-145) mmol/L Potassium 3.7 (3.5-5.0) mmol/L Chloride 104 (101-111) mmol/L Carbon Dioxide 28 (22-32) mmol/L Anion Gap 7 (2-11) mmol/L BUN 9 (6-24) mg/dL Creatinine 0.67 (0.51-0.95) mg/dL Est GFR ( Amer) 129.8 (>60) Est GFR (Non-Af Amer) 107.2 (>60) BUN/Creatinine Ratio 13.4 (8-20) Glucose 93 (70-100) mg/dL Calcium 9.3 (8.6-10.3) mg/dL Total Bilirubin 0.60 (0.2-1.0) mg/dL AST 11 L (13-39) U/L ALT 16 (7-52) U/L Alkaline Phosphatase 89 (34-104) U/L Troponin I 0.00 (<0.04) ng/mL Total Protein 7.2 (6.4-8.9) g/dL Albumin 4.0 (3.2-5.2) g/dL Globulin 3.2 (2-4) g/dL Albumin/Globulin Ratio 1.3 (1-3) Result Diagrams: 03/18/19 15:46 03/18/19 15:46 Lab Statement: Any lab studies that have been ordered have been reviewed, and results considered in the medical decision making process. - CT Chest CTA CT Interpretation Completed By: ED Physician Summary of CT Findings: 1. No visible acute pulmonary embolism. 2. No aortic dissection. ED physician has reviewed this report. - EKG 1529 Cardiac Rate: NL - 88 BPM EKG Rhythm: Sinus Rhythm Summary of EKG Findings: no STEMI. short VT Re-Evaluation - Re-Evaluation First Eval Re-Evaluation Time: 18:32 Comment: Chest CTA findings negative. patient informed- pt requesting discharge home. advised decreased tobacco,. small frequent meals. pepcid. f/ u with pcp. return precuations Chest Pain Course/Dx - Course Course Of Treatment: Pt presents to ED sent by PCP pt recenntly started amlopdine for BP. Pt with abd cramping and diarrhea after starting. Since yesterday intermittent pleuritic chest discomfort with SOB. Pt with mild nausea , bleching after eating cheesesteak sandwich. Pt with a history of tobacco and BC Pt also with h/o DVT - not anticoagulated. EKG non concerning. will check labs. ddimer. anticipate CTA. will give pepcid and analgesia. pt comfortable and in agreement with plan. elevated BP - history of same - Diagnoses Provider Diagnoses: Chest pain, pleuritic Discharge ED - Sign-Out/Discharge Documenting (check all that apply): Patient Departure - Discharge - Discharge Plan Condition: Stable Disposition: HOME Patient Education Materials: Pleurisy (ED) Referrals: Fannie Beth MD [Primary Care Provider] - Additional Instructions: - stay well hydrated - drink plenty of non-alcoholic, non-caffinated beverages - eat small, frequent meals. Avoid spicy food, acidic foods, tomato based food - it is recommended you - Billing Disposition and Condition Condition: STABLE Disposition: Home - Attestation Statements Document Initiated by Scribe: Yes Documenting Scribe: Deepthi Hinton Provider For Whom Scribe is Documenting (Include Credential): Susie Dorado MD Scribe Attestation: Deepthi Rogers, scribed for Susie Dorado MD on 03/19/19 at 2048. Scribe Documentation Reviewed: Yes Provider Attestation: The documentation as recorded by the scribe, Deepthi Hinton accurately reflects the service I personally performed and the decisions made by me, Susie Dorado MD Status of Kaleigh Document: Viewed
[2019-03-18] MEDS: Ketorolac INJ* 30 MG/ML 1 ML VIAL IV PUSH ONE (17:07)
[2019-03-18] MEDS: NS 0.9% 1000 ML** 1,000 ML IV ONE (17:07)
[2019-03-18] MEDS: Iohexol 350* (CONTRAST) 500 ML MDV IV ONE (17:32)
[2019-03-18 18:55] VITALS: BP 113/86
== END 2019-03-18 18:50 | disposition home or self-care (01) ==
LOC: ED 15:28
DX: R07.81 Pleurodynia (principal); F17.210 Nicotine dependence, cigarettes, uncomplicated; Z79.899 Other long term (current) drug therapy; Z88.8 Allergy status to other drugs, medicaments and biological substances
CPT/HCPCS: 36415; 71275; 80053; 84484; 85025; 85379; 85610; 93005; 96361; 96374; 99283; J1885; Q9967

== ENCOUNTER 2019-07-19 17:03 | Emergency (ER) | payer BC ==
[2019-07-19] MEDS ORDERED: Acetaminophen TAB* 325 MG PO ONE (17:25)
--- NOTE | 2019-07-19 17:27 | ED ---
Back Pain - HPI Summary HPI Summary: Patient is a 24 y/o F presenting to the ED for a chief complaint of back pain, bilateral LE pain, and bilateral LE edema after a fall. She describes the bilateral LE and back pain as a pressure sensation. On the night of 07/16/19, patient had a fall after walking down a driveway. She states that she slipped and fell, landing on her back and hitting her head. She denies a LE injury at that time. Patient is able to ambulate and bear weight. Patient also notes chest pain that began on 07/18/19 and worsens with deep breaths. She states her right LE became swollen after the fall, and on 07/18/19, her left LE became swollen. No aggravating or alleviating factors are reported. Patient notes having a similar feeling when she had a blood clot after giving 4 years ago. Patient denies taking any OTC medications. PMHx is significant for HTN, DDD , herniated disc, tendonitis in the hands, and arthritis. She admits tobacco use , but denies alcohol or drug use. Patient denies taking blood thinners. Medications reviewed. Allergies noted. - History of Current Complaint Chief Complaint: EDBackInjuryPain Stated Complaint: FALL BACK PAIN,LEG SWELLING Time Seen by Provider: 07/19/19 17:17 Hx Obtained From: Patient Hx Last Menstrual Period: Mirena IUD Onset/Duration: Sudden Onset, Still Present Onset/Duration: Traumatic - Fall, Still Present Timing: Constant Severity Initially: Severe Severity Currently: Severe Pain Intensity: 8 Pain Scale Used: 0-10 Numeric Aggravating Symptom(s): Nothing Alleviating Symptom(s): Nothing - Allergies/Home Medications Allergies/Adverse Reactions: Allergies Allergy/AdvReac Type Severity Reaction Status Date / Time phentermine AdvReac Hives Verified 07/19/19 17:09 Home Medications: Home Medications Levonorgestrel (Iud) [Mirena IUD] 20 mcg IU SEE INSTRUCTIONS 08/14/18 [History Confirmed 03/18/19] tiZANidine TAB* [Zanaflex TAB*] 4 mg PO BEDTIME 08/14/18 [History Confirmed ] Ibuprofen TAB* [Motrin TAB* 800 MG] 800 mg PO Q6H PRN #30 tab 08/18/18 [Rx Confirmed 03/18/19] Gabapentin 400 mg PO QID PRN 02/13/19 [History Confirmed 03/18/19] traMADol TAB* [Ultram*] 50 mg PO Q6HR PRN 02/13/19 [History Confirmed 03/18/19] Amitriptyline TAB* [Elavil TAB*] 50 mg PO BEDTIME 03/18/19 [History Confirmed ] Amlodipine Besylate [Amlodipine 2.5 mg tab] 5 mg PO DAILY 03/18/19 [History Confirmed 03/18/19] PMH/Surg Hx/FS Hx/Imm Hx Previously Healthy: Yes Endocrine/Hematology History: Reports: Hx Anticoagulant Therapy Denies: Hx Diabetes Cardiovascular History: Reports: Hx Deep Vein Thrombosis Denies: Hx Hypertension, Hx Pacemaker/ICD Respiratory History: Reports: Hx Asthma - INHALER PRN GI History: Denies: Hx Gastroesophageal Reflux Disease History: Denies: Hx Renal Disease Musculoskeletal History: Reports: Hx Arthritis, Hx Back Problems, Other Musculoskeletal History - DDD, chronic back pain, herniated disc, tendonitis of hands Sensory History: Denies: Hx Legally Blind, Hx Deafness, Hx Hearing Aid Opthamlomology History: Denies: Hx Legally Blind EENT History: Denies: Hx Deafness Neurological History: Reports: Other Neuro Impairments/Disorders - Spinal stenosis and chipped, bulging discs in the L-spine. / PAIN CLINIC PT Psychiatric History: Denies: Hx Depression, Hx Panic Disorder - Cancer History Cancer Type, Location and Year: None reported - Surgical History Surgical History: Yes Surgery Procedure, Year, and Place: WISDOM TEETH - Immunization History Date of Tetanus Vaccine: pt states unsure Date of Influenza Vaccine: none Infectious Disease History: No Infectious Disease History: Denies: Traveled Outside the [place] in Last 30 Days - Family History Known Family History: Positive: Hypertension, Diabetes, Other - mother DVT - Social History Occupation: Unemployed Lives: With Family Alcohol Use: None Hx Substance Use: No Substance Use Type: Reports: None Hx Tobacco Use: Yes Smoking Status (MU): Light Every Day Tobacco Smoker Type: Cigarettes Amount Used/How Often: 1 Pack every other day Have You Smoked in the Last Year: Yes Review of Systems Positive: Chest Pain Positive: Myalgia - Back and bilateral LE, Edema - Bilateral LE All Other Systems Reviewed And Are Negative: Yes Physical Exam - Summary Physical Exam Summary: Constitutional: Well-developed, Morbidly obese. Alert. (-) Distressed Skin: Warm, Dry HENT: Normocephalic; Atraumatic Eyes: Conjunctiva normal Neck: Musculoskeletal ROM normal neck. (-) JVD, (-) Stridor, (-) Tracheal deviation Cardio: Rhythm regular, rate normal, Heart sounds normal; Intact distal pulses; Radial pulses are 2+ and symmetric. (-) Murmur Pulmonary/Chest wall: Effort normal. (-) Respiratory distress, (-) Wheezes, (-) Rales Abd: Soft, (-) tenderness, (-) Distension, (-) Guarding, (-) Rebound Musculoskeletal: (-) Edema. Surgical scar on the lower back, right midline tenderness, no appreciable swelling on the bilateral LE although exam is limited due to size extremis. Lymph: (-) Cervical adenopathy Neuro: Alert, Oriented x3 Psych: Mood and affect Normal Triage Information Reviewed: Yes Vital Signs On Initial Exam: Initial Vitals Temp Pulse Resp BP Pulse Ox 97.9 F 96 14 170/108 99 07/19/19 17:06 07/19/19 17:06 07/19/19 17:06 07/19/19 17:06 07/19/19 17:06 Vital Signs Reviewed: Yes Procedures - Sedation Patient Received Moderate/Deep Sedation with Procedure: No Diagnostics - Vital Signs Vital Signs Temp Pulse Resp BP Pulse Ox 07/19/19 17:06 97.9 F 96 14 170/108 99 - Laboratory Result Diagrams: 07/19/19 17:35 07/19/19 17:35 Lab Statement: Any lab studies that have been ordered have been reviewed, and results considered in the medical decision making process. Re-Evaluation - Re-Evaluation First Eval Re-Evaluation Time: 17:30 Change: Unchanged Comment: At 17:30, patient was offered an ultrasound and CT scan, but declined. I will scan for a D-dimer. Back Pain Course/Dx - Course Course Of Treatment: Patient is here with bilateral lower extremity swelling after a fall earlier this week. Patient is concerned that she has a DVT given her history of DVT. Patient was hemodynamically stable in the satting well on room air. Patient is morbidly obese making it hard to determine if her legs are swollen or not. Patient does have lower spinal tenderness but states she always has that present. Patient was offered ultrasound of her lower extremities and a CT of her chest but declined. Patient did have blood performed which showed a negative d-dimer, normal BNP, normal lites. - Diagnoses Provider Diagnoses: Fall, Back pain, Leg swelling Discharge ED - Sign-Out/Discharge Documenting (check all that apply): Patient Departure - Discharge - Discharge Plan Condition: Stable Disposition: HOME Patient Education Materials: Leg Edema (ED) Referrals: Fannie Beth MD [Primary Care Provider] - Additional Instructions: PLEASE RETURN TO EMERGENCY DEPARTMENT FOR ANY NEW OR WORSENING SYMPTOMS. Please follow up with your primary care physician. Please make all follow-ups in 1-3 days unless I advise you otherwise. - Billing Disposition and Condition Condition: STABLE Disposition: Home - Attestation Statements Document Initiated by Kaleigh: Yes Documenting Scribe: Inna Urban Provider For Whom Kaleigh is Documenting (Include Credential): Piter Nugent MD Scribe Attestation: Inna Rogers, scribed for Piter Nugent MD on 07/19/19 at 1852. Scribe Documentation Reviewed: Yes Provider Attestation: The documentation as recorded by the Inna lopez accurately reflects the service I personally performed and the decisions made by me, Piter Nugent MD Status of Scribe Document: Viewed
[2019-07-19 17:46] LABS: ABS Basophils 0.1 10^3/ul (0-0.2); ABS Eosinophils 0.3 10^3/ul (0-0.6); ABS Lymphocytes 2.5 10^3/ul (1.0-4.8); ABS Monocytes 0.7 10^3/ul (0-0.8); ABS Neutrophils 6.4 10^3/ul (1.5-7.7); Hematocrit 38 % (35-47); Hemoglobin 13.1 g/dL (12.0-16.0); Lymphocyte % 24.6 %; Mean Corpuscular HGB Conc 35 g/dL (31-36); Mean Corpuscular Hemoglobin 32 pg (27-31); Mean Corpuscular Volume 91 fL (80-97); Mean Platelet Volume 7.6 fL (7.4-10.4); Nucleated Red Blood Cells % 0.1; Platelet Count 294 10^3/uL (150-450); Red Cell Distribution Width 13 % (10-15)
[2019-07-19 18:06] LABS: Albumin 3.9 g/dL (3.2-5.2); Albumin/Globulin Ratio 1.4 (1-3); BUN/Creatinine Ratio 11.3 (8-20); Calcium 8.7 mg/dL (8.6-10.3); EGFR African American 140.8 (>60); EGFR Non-African American 116.4 (>60); Globulin 2.8 g/dL (2-4); Total Bilirubin 0.5 mg/dL (0.2-1.0); Total Protein 6.7 g/dL (6.4-8.9)
[2019-07-19 18:56] VITALS: BP 126/89
== END 2019-07-19 18:55 | disposition home or self-care (01) ==
LOC: ED 17:03
DX: M54.5 Low back pain (principal); R60.0 Localized edema; M79.605 Pain in left leg; M79.604 Pain in right leg; W01.0XXA Fall on same level from slipping, tripping and stumbling without subsequent striking against object, initial encounter; Y92.9 Unspecified place or not applicable; J45.909 Unspecified asthma, uncomplicated; Z86.718 Personal history of other venous thrombosis and embolism; Z88.8 Allergy status to other drugs, medicaments and biological substances; F17.210 Nicotine dependence, cigarettes, uncomplicated
CPT/HCPCS: 36415; 80053; 83880; 85025; 85379; 99283; A9270-GY